=== PATIENT | male | born 1960 | race African-American/Black ===

== ENCOUNTER 2021-05-05 12:49 | Outpatient (REF) | payer MEDICAID, SELFPAY ==
--- NOTE | ~2021-05-05 | XR_ITS ---
EXAMINATION: XR KNEE, BILATERAL CLINICAL INFORMATION: Pain. COMPARISON: None TECHNIQUE: 2 views of each knee. FINDINGS: RIGHT: Bone alignment is normal. No fracture or dislocation is seen. There is arthritis at the medial femorotibial and patellofemoral joints with joint space narrowing and osteophyte formation. There is an osteophyte at the quadriceps tendon insertion to the patella. There is a small joint effusion. LEFT KNEE: There is orthopedic hardware seen in the proximal tibia. No acute fracture or dislocation is seen. There is arthritis at the femorotibial and patellofemoral joints with joint space narrowing and osteophyte formation. There is an osteophyte at the quadriceps tendon insertion to the patella. There is a small joint effusion. XR/XR knee RT 2V IMPRESSION: Orthopedic hardware in the left proximal tibia. Bilateral arthritis, left greater than right.
--- NOTE | ~2021-05-05 | XR_ITS ---
EXAMINATION: XR KNEE, BILATERAL CLINICAL INFORMATION: Pain. COMPARISON: None TECHNIQUE: 2 views of each knee. FINDINGS: RIGHT: Bone alignment is normal. No fracture or dislocation is seen. There is arthritis at the medial femorotibial and patellofemoral joints with joint space narrowing and osteophyte formation. There is an osteophyte at the quadriceps tendon insertion to the patella. There is a small joint effusion. LEFT KNEE: There is orthopedic hardware seen in the proximal tibia. No acute fracture or dislocation is seen. There is arthritis at the femorotibial and patellofemoral joints with joint space narrowing and osteophyte formation. There is an osteophyte at the quadriceps tendon insertion to the patella. There is a small joint effusion. XR/XR knee LT 2V IMPRESSION: Orthopedic hardware in the left proximal tibia. Bilateral arthritis, left greater than right.
== END 2021-05-05 12:50 | disposition home or self-care (01) ==
LOC: HO.XRAY 12:49
PROVIDERS: Absent Provider Internal Medicine; PCP Internal Medicine; Visit Provider Family Medicine
DX: M25.561 Pain in right knee (principal); M25.562 Pain in left knee
CPT/HCPCS: 73560

== ENCOUNTER 2021-08-16 13:44 | Outpatient (REF) | payer MEDICAID, SELFPAY ==
--- NOTE | ~2021-08-16 | XR_ITS ---
EXAMINATION: XR SHOULDER, BILATERAL CLINICAL INFORMATION: Bilateral shoulder pain without known injury. COMPARISON: None TECHNIQUE: 4 views of each shoulder. FINDINGS: RIGHT SHOULDER: There is mild spurring about the glenohumeral joint. Joint space appears maintained. There is spurring with subchondral cyst formation seen involving the site of insertion of the supraspinatus tendon. There appears be some cystic change within the right humeral head with some cortical thinning and possible nondisplaced fracture versus overlying spurring without humeral head collapse. No definite calcific tendinitis is appreciated. No dislocation or subluxation appreciated. There is degenerative change of the acromioclavicular joint with spurring and narrowing. LEFT SHOULDER: There is no evidence of acute fracture or dislocation of the left shoulder. Mild spurring about the glenohumeral joint is seen without joint space narrowing. There is some spurring at site of insertion of the supraspinatus tendon with some mild subchondral cyst formation. No suspicious lytic or sclerotic lesions identified. There is prominent spurring about the left acromion with maintenance of the AC joint. XR/XR shoulder RT min 2V IMPRESSION: Degenerative change of both shoulders bilaterally as described right greater than left. Right humeral head cystic change with question nondisplaced cortical fracture without humeral head collapse. This appearance may be related to overlying spurring rather than a true fracture.
--- NOTE | ~2021-08-16 | XR_ITS ---
EXAMINATION: XR SHOULDER, BILATERAL CLINICAL INFORMATION: Bilateral shoulder pain without known injury. COMPARISON: None TECHNIQUE: 4 views of each shoulder. FINDINGS: RIGHT SHOULDER: There is mild spurring about the glenohumeral joint. Joint space appears maintained. There is spurring with subchondral cyst formation seen involving the site of insertion of the supraspinatus tendon. There appears be some cystic change within the right humeral head with some cortical thinning and possible nondisplaced fracture versus overlying spurring without humeral head collapse. No definite calcific tendinitis is appreciated. No dislocation or subluxation appreciated. There is degenerative change of the acromioclavicular joint with spurring and narrowing. LEFT SHOULDER: There is no evidence of acute fracture or dislocation of the left shoulder. Mild spurring about the glenohumeral joint is seen without joint space narrowing. There is some spurring at site of insertion of the supraspinatus tendon with some mild subchondral cyst formation. No suspicious lytic or sclerotic lesions identified. There is prominent spurring about the left acromion with maintenance of the AC joint. XR/XR shoulder LT min 2V IMPRESSION: Degenerative change of both shoulders bilaterally as described right greater than left. Right humeral head cystic change with question nondisplaced cortical fracture without humeral head collapse. This appearance may be related to overlying spurring rather than a true fracture.
== END 2021-08-16 13:45 | disposition home or self-care (01) ==
LOC: HO.XRAY 13:44
PROVIDERS: Visit Provider Internal Medicine
DX: M25.511 Pain in right shoulder (principal); M25.512 Pain in left shoulder
CPT/HCPCS: 73030

== ENCOUNTER → 2021-10-12 10:59 | Outpatient (BNVA) | payer MEDICAID, SELFPAY | PROVIDERS: PCP Internal Medicine; Visit Provider Physician Assistant | DX: M19.011 Primary osteoarthritis, right shoulder (principal); M75.80 Other shoulder lesions, unspecified shoulder | CPT/HCPCS: 20610; 99202; J1040 ==

== ENCOUNTER 2021-10-24 08:58 | Outpatient (REF) | payer MEDICAID, SELFPAY ==
--- NOTE | ~2021-10-24 | MR_ITS ---
EXAMINATION: MR SHOULDER WITHOUT CONTRAST, RIGHT CLINICAL INFORMATION: Right shoulder pain and weakness. Decreased range of motion. COMPARISON: Right shoulder radiographs dated 08/16/2021. TECHNIQUE: MRI of the shoulder without contrast was performed on a high-field scanner. FINDINGS: ROTATOR CUFF: Complete, full-thickness supraspinatus tendon tear measuring approximately 2.9 x 3.1 cm (AP by ML). Articular surface tearing extending to the anterior aspect of the infraspinatus tendon with fluid proximally along the myotendinous junction. Subscapularis tendinosis with distal articular surface partial tearing measuring 1.6 cm in ML dimension. No muscle atrophy or fatty infiltration. BICEPS: Complete tear and retraction of the proximal long head biceps tendon. CORACOACROMIAL ARCH: The undersurface of the acromion is curved with prominent subacromial spurring. Severe acromioclavicular osteoarthritis. LABRUM/CAPSULE: No displaced labral tear. Intact inferior joint capsule. GLENOHUMERAL JOINT/MARROW: Degenerative cystic change within the lesser and greater tuberosity. Mild glenohumeral articular cartilage signal heterogeneity with tiny marginal osteophytes. Small joint effusion. MR/MR shoulder RT wo con IMPRESSION: 1. Complete, full-thickness supraspinatus tendon tear measuring 2.9 x 3.1 cm. Extension to the articular surface of the infraspinatus tendon with fluid proximally along the myotendinous junction. Subscapularis tendinosis with distal articular surface partial tearing. 2. Complete tear and retraction of the proximal long head biceps tendon. 3. Severe acromioclavicular osteoarthritis with prominent subacromial spurring. 4. Mild glenohumeral osteoarthritis and small joint effusion.
== END 2021-10-24 08:59 | disposition home or self-care (01) ==
LOC: HO.MRI 08:58
PROVIDERS: Visit Provider Physician Assistant
DX: M19.011 Primary osteoarthritis, right shoulder (principal); M75.81 Other shoulder lesions, right shoulder
CPT/HCPCS: 73221

== ENCOUNTER → 2021-11-03 09:45 | Outpatient (BNVA) | payer MEDICAID, SELFPAY | PROVIDERS: PCP Internal Medicine; Visit Provider Orthopaedic Surgery | DX: M75.101 Unspecified rotator cuff tear or rupture of right shoulder, not specified as traumatic (principal); M12.811 Other specific arthropathies, not elsewhere classified, right shoulder | CPT/HCPCS: 99212 ==

== ENCOUNTER → 2021-11-27 12:38 | Outpatient (REF) | payer MEDICAID, SELFPAY ==
--- NOTE | 2021-11-27 12:41 | ECG_ITS ---
Hook-up date: 2021-11-27 11:57:00 Duration: 24:51:00 Test Indications: dizziness and gliddiness Medications: 87992 QRS complexes 8 Ventricular ectopics which represent <1 % of total QRS comp. 31 Supraventricular ectopics which represent <1 % of total QRS comp. * Paced QRS complexs which represent % of total QRS comp. VENTRICULAR ECTOPY 8 Isolated 0 Bigeminal Cycles 0 Couplets 0 Runs 0 Beats in Runs * Beats LONGEST at * BPM at :: -- * Beats FASTEST at * BPM at :: -- SUPRAVENTRICULAR ECTOPY 31 Isolated 0 Couplets 0 Runs 0 Beats in Runs * Beats LONGEST at * BPM at :: -- * Beats FASTEST at * BPM at :: -- HEART RATES 38 MIN at 02:05:23 2021-11-28 59 AVG 124 MAX at 11:10:34 2021-11-28 LONGEST RR 1.6000 secs at 05:20:13 2021-11-28 S-T LEVELS Channel 1 - 128 mm at 11:57:00 2021-11-27 - 128 mm at 11:57:00 2021-11-27 Channel 2 - 128 mm at 11:57:00 2021-11-27 - 128 mm at 11:57:00 2021-11-27 Channel 3 - 128 mm at 03:11:61 -- - 128 mm at 03:11:61 Underlying rhythm is sinus; Average ventricular rate 59/min; range 38-124/min; Rare supraventricular and ventricular ectopy; No significant tachy or laura arrhythmias; No dairy events. Referred By: Jacek Bush Overread By: OLESYA DUMAS
== END ==
LOC: HO.CARD 12:38
PROVIDERS: Visit Provider Internal Medicine
DX: R42 Dizziness and giddiness (principal)
CPT/HCPCS: 93225; 93226

== ENCOUNTER → 2022-02-09 11:47 | Outpatient (BNVA) | payer MEDICAID, SELFPAY | PROVIDERS: PCP Internal Medicine; Visit Provider Orthopaedic Surgery | DX: M75.101 Unspecified rotator cuff tear or rupture of right shoulder, not specified as traumatic (principal); M12.811 Other specific arthropathies, not elsewhere classified, right shoulder | CPT/HCPCS: 20610; 99212; J1100 ==

== ENCOUNTER 2022-08-31 09:24 | Day surgery (SDC) | payer MEDICAID, SELFPAY ==
[2022-08-31] VITALS (7 sets, daily range): BP systolic 113–145; BP diastolic 72–92; PULSE 51–69; RESP 20; TEMP 36.4–36.8; O2SAT 100
[2022-08-31 10:28] LABS: Anion Gap 14 (12-20); Blood Urea Nitrogen 7 mg/dL (9-16); Carbon Dioxide 27 mmol/L (22-29); Chloride 103 mmol/L (96-108); Estimated Glomerular Filt Rate 57; Potassium 4.2 mmol/L (3.3-5.1); Sodium 140 mmol/L (135-145)
== END 2022-08-31 16:23 | disposition home or self-care (01) ==
PROVIDERS: Psychiatry & Neurology Neurology; Radiology Diagnostic Radiology; PCP Internal Medicine; Visit Provider Psychiatry & Neurology Neurology
PROC: 009U3ZZ Drainage of Spinal Canal, Percutaneous Approach (ICD-10-PCS; CPT 62270; principal; 2022-08-31 11:00)
DX: G37.9 Demyelinating disease of central nervous system, unspecified (principal); F41.8 Other specified anxiety disorders; M47.812 Spondylosis without myelopathy or radiculopathy, cervical region; M50.00 Cervical disc disorder with myelopathy, unspecified cervical region; R42 Dizziness and giddiness; M19.90 Unspecified osteoarthritis, unspecified site; Z79.899 Other long term (current) drug therapy
CPT/HCPCS: 36415; 62328; 80051; 82565; 82945; 84157; 84520; 85025; 85610; 85730; 87015; 87070; 87205; 89051

== ENCOUNTER 2022-09-24 10:51 | Outpatient (REF) | payer MEDICAID, SELFPAY | END 2022-09-24 10:52 | disposition home or self-care (01) | LOC: HO.MDS 10:51 | PROVIDERS: Visit Provider Psychiatry & Neurology Neurology | DX: G37.9 Demyelinating disease of central nervous system, unspecified (principal) | CPT/HCPCS: 96365; J2930 ==

== ENCOUNTER 2022-09-25 10:52 | Outpatient (REF) | payer MEDICAID, SELFPAY | END 2022-09-25 10:53 | disposition home or self-care (01) | LOC: HO.MDS 10:52 | PROVIDERS: Visit Provider Psychiatry & Neurology Neurology | DX: G37.9 Demyelinating disease of central nervous system, unspecified (principal) | CPT/HCPCS: 96365; J2930 ==

== ENCOUNTER 2022-09-26 10:53 | Outpatient (REF) | payer MEDICAID, SELFPAY | END 2022-09-26 10:54 | disposition home or self-care (01) | LOC: HO.MDS 10:53 | PROVIDERS: Visit Provider Psychiatry & Neurology Neurology | DX: G37.9 Demyelinating disease of central nervous system, unspecified (principal) | CPT/HCPCS: 96365; J2930 ==

== ENCOUNTER 2022-10-02 11:36 | Outpatient (REF) | payer MEDICAID, SELFPAY ==
[2022-10-02 12:53] LABS: Erythrocyte Sedimentation Rate 5 MM/HR (0-15)
[2022-10-02 13:07] LABS: Alanine Aminotransferase 28 U/L (0-40); Albumin Level 4.2 g/dL (3.5-5.0); Alkaline Phosphatase 77 U/L (39-117); Aspartate Amino Transferase 18 U/L (5-37); Bilirubin Direct 0.1 mg/dL (0.0-0.5); Bilirubin Total 0.4 mg/dL (0.0-1.0); Total Protein 7.3 g/dL (6.5-8.0)
[2022-10-04 07:08] LABS: Lyme Abs Screen <0.90 index
[2022-10-08 15:18] LABS: Anti Nuclear Antibody Screen NEGATIVE (NEGATIVE)
[2022-10-11 01:15] LABS: JCV Antibody POSITIVE; JCV Index Value 0.47
== END 2022-10-02 11:37 | disposition home or self-care (01) ==
LOC: HO.LAB 11:36
PROVIDERS: PCP Internal Medicine; Visit Provider Psychiatry & Neurology Neurology
DX: G35 Multiple sclerosis (principal)
CPT/HCPCS: 36415; 80076; 85652; 86038; 86617; 86618; 86711

== ENCOUNTER 2022-10-31 13:05 | Outpatient (REF) | payer MEDICAID, SELFPAY ==
[2022-11-01 08:43] LABS: HBS Num1 0.23 mIU/mL (0-7.99); HBc Num1 0.07 S/CO (0.00-0.79); HBsAGNum1 0.29 S/CO (0.00-0.99); Hepatitis B Core Antibody Nonreactive (Nonreactive); Hepatitis B Surface Antigen Negative (Negative); ~Hepatitis B Surface Antibody NONREACTIVE (Nonreactive)
[2022-11-02 22:24] LABS: TS Negative Control Passed; TS Panel A 2; TS Panel B 0; TS Positive Control Passed; TSpotTB Negative (Negative)
== END 2022-10-31 13:06 | disposition home or self-care (01) ==
LOC: HO.HMGCLDS 13:05
PROVIDERS: PCP Internal Medicine; Visit Provider Psychiatry & Neurology Neurology
DX: Z11.1 Encounter for screening for respiratory tuberculosis (principal); G35 Multiple sclerosis
CPT/HCPCS: 36415; 86481; 86704; 86706; 87340

== ENCOUNTER 2023-01-14 13:46 | Outpatient (REF) | payer MEDICAID, SELFPAY ==
[2023-01-14 15:37] LABS: Anion Gap 9 (12-20); Blood Urea Nitrogen 7 mg/dL (9-16); Calcium 9.9 mg/dL (8.4-10.2); Carbon Dioxide 29 mmol/L (22-29); Chloride 102 mmol/L (96-108); Estimated Glomerular Filt Rate > 60; Glucose Random 97 mg/dL (60-115); Magnesium 2.3 mg/dL (1.6-2.6); Potassium 3.9 mmol/L (3.3-5.1); Sodium 136 mmol/L (135-145)
[2023-01-14 16:04] LABS: Vitamin B12 776 pg/mL (200-900)
== END 2023-01-14 13:47 | disposition home or self-care (01) ==
LOC: HO.CHCLDS 13:46
PROVIDERS: Visit Provider Internal Medicine
DX: R20.2 Paresthesia of skin (principal); I10 Essential (primary) hypertension
CPT/HCPCS: 36415; 80048; 82607; 83735

== ENCOUNTER 2023-12-19 13:57 | Outpatient (REF) | payer MEDICAID, SELFPAY ==
[2023-12-19 18:19] LABS: Alanine Aminotransferase 47 U/L (0-40); Albumin Level 4.1 g/dL (3.5-5.0); Alkaline Phosphatase 71 U/L (39-117); Anion Gap 13 (12-20); Aspartate Amino Transferase 66 U/L (5-37); Bilirubin Total 0.4 mg/dL (0.0-1.0); Blood Urea Nitrogen 9 mg/dL (9-16); Calcium 9.7 mg/dL (8.4-10.2); Carbon Dioxide 26 mmol/L (22-29); Chloride 105 mmol/L (96-108); Cholesterol 211 mg/dL (<200); Estimated Glomerular Filt Rate > 60; Glucose Random 80 mg/dL (60-115); HDL Cholesterol 82 mg/dL (>40); LDL Cholesterol Calculated 120 mg/dL (<100); Potassium 4.1 mmol/L (3.3-5.1); Sodium 140 mmol/L (135-145); Total Protein 7.1 g/dL (6.5-8.0); Triglycerides 49 mg/dL (<150)
[2023-12-19 18:35] LABS: TSH reflex Free T4 0.76 uIU/mL (0.32-4.0)
== END 2023-12-19 13:58 | disposition home or self-care (01) ==
LOC: HO.CHCLDS 13:57
PROVIDERS: Visit Provider Internal Medicine
DX: I10 Essential (primary) hypertension (principal); G35 Multiple sclerosis
CPT/HCPCS: 36415; 80053; 80061; 84443

== ENCOUNTER 2024-02-11 16:23 | Outpatient (REF) | payer MEDICAID, SELFPAY ==
[2024-02-12 08:15] LABS: HBS Num1 1.22 mIU/mL (0-7.99); Hepatitis A Antibody IgM 0.13 Index (0-0.79); Hepatitis B Core Antibody Nonreactive (Nonreactive); Hepatitis B Surface Antigen Negative (Negative); ~HepC Num1 0.12 S/CO (0.00-0.79); ~Hepatitis A Antibody IgM Nonreactive (Nonreactive); ~Hepatitis B Surface Antibody NONREACTIVE (Nonreactive); ~Hepatitis C Antibody Nonreactive (Nonreactive)
== END 2024-02-11 16:24 | disposition home or self-care (01) ==
LOC: HO.CHCLDS 16:23
PROVIDERS: Visit Provider Internal Medicine
DX: R74.01 Elevation of levels of liver transaminase levels (principal)
CPT/HCPCS: 36415; 86704; 86706; 86709; 86803; 87340

== ENCOUNTER 2024-06-19 14:42 | Outpatient (REF) | payer MEDICAID, SELFPAY ==
--- OUTSIDE RECORDS SUMMARY | 2024-06-19 15:24 | XMS_ITS | Encounter Summary ---
Author Organization [employer] Address [address], [place] [address] Care Team Providers Care Line Assigner Name Role Phone Jacek Bush MD Primary Care Provider [phone] Reason for Visit * Reason Onset Date Comments Appointment Request 08/14/2022 Encounter Details Date Type Department Care Team ([facility] st Contact Info) Description 08/14/2022 Telephone [facility] & PEDS [address], [place] [id number] Jacek Bush MD [address] [place] [address] Appointment Request Social History Tobacco Use Types Packs/Day Years Used Date Smoking Tobacco: Some Days Cigarettes Passive Smoke Exposure: Never Smokeless Tobacco: Never Alcohol Use Standard Drinks/Week Comments Never 0 (1 standard drink = 0.6 oz pur e alcohol) Depression Answer Date Recorded Patient Health Questionnaire-9 Score 2 02/06/2022 Depression Answer Date Recorded Patient Health Questionnaire-2 Score 0 02/06/2022 Sex and Gender Information Value Date Recorded Sex Assigned at Male 12/25/2021 10:17 AM EDT Legal Sex Male 10:17 AM EDT Gender Identity Male 12/25/2021 10:17 AM EDT Sexual Orientation Straight 12/25/2021 10 :17 AM EDT documented as of this encounter Miscellaneous Notes * Telephone Encounter - Viky Mcadamsnez - 08/14/2022 8:55 AM EDT Tc from patient requesting to r/s procedure appt from 08/07/22. Details: shoulder injection documented in this encounter Plan of Treatment Upcoming Encounters Date Type Department Care Team ([facility] st Contact Info) Description 07/01/2024 10:30 AM EDT Office Visit [facility] MED [facility] PEDS [address] [place] [address] Jacek Bush MD [address] [place] [address] documented as of this encounter Visit Diagnoses Not on filedocumented in this encounter Additional Health Concerns Assessment Noted Time PHQ-9 Depression Total Score: 2 02/07/20 22 10:57 AM EST documented as of this encounter Care Teams Line Assigner Relationship Specialty Start Date End Date Jacek Bush MD [address] [place] [address] PCP - General Internal Medicine 09/27/11 Kajal Pelayo Postdoctoral Research AssociatePin Game Machine Inspector 08/15/23 documented as of this encounter
--- OUTSIDE RECORDS SUMMARY | 2024-06-19 15:24 | XMS_ITS | Encounter Summary ---
Author Organization [employer] Address [address] [place] [address] [address] [address] Care Team Providers Care It Systems Analyst Consultant Name Role Phone Jacek Bush MD Primary Care Provider Encounter Details Date Type Department Care Team (Latest Contact Info) Description 03/23/2019 Abstract [facility] CONVERSIONS Dental, Provider, DDS Social History Tobacco Use Types Packs/Day Years Used Date Smoking Tobacco: Never Assessed Sex and Gender Information Value Date Recorded Sex Assigned at Male 12/25/2021 10:17 AM EDT Legal Sex Male 10:17 AM EDT Gender Identity Male 12/25/2021 10:17 AM EDT Sexual Orientation Straight 12/25/2021 10 :17 AM EDT documented as of this encounter Plan of Treatment Upcoming Encounters Date Type Department Care Team (Late st Contact Info) Description 07/01/2024 10:30 AM EDT Office Visit [facility] MED & PEDS [address] [place] [address] Jacek Bush MD [address] [place] [address] documented as of this encounter Visit Diagnoses Not on filedocumented in this encounter Care Teams It Systems Analyst Consultant Relationship Specialty Start Date End Date Jacek Bush MD [address] [place] [address] PCP - General Internal Medicine 09/27/11 Kajal Pelayo Morning Show HostThird Rail Installer 08/15/23 documented as of this encounter
--- OUTSIDE RECORDS SUMMARY | 2024-06-19 15:24 | XMS_ITS | Encounter Summary ---
Author Organization [employer] Address [address] [place] [address] Care Team Providers Care Energy Rater Name Role Phone aJcek Bush MD Primary Care Provider [phone]- [phone] Reason for Visit * Reason Onset Date Comments Appointment Request 10/14/2023 Encounter Details Date Type Department Care Team ([facility] st Contact Info) Description 10/14/2023 Telephone [facility] [address] [place] [address] Jacek Bush MD [address] [place] [address] Appointment Request Social History Tobacco Use Types Packs/Day Years Used Date Smoking Tobacco: Some Days Cigarettes Passive Smoke Exposure: Never Smokeless Tobacco: Never Alcohol Use Standard Drinks/Week Comments Never 0 (1 standard drink = 0.6 oz pur e alcohol) Depression Answer Date Recorded Patient Health Questionnaire-9 Score 2 02/06/2022 Housing Stability Answer Date Recorded What is your housing situation today? I have housing today, but I am worried about losing housing in the future 03/13/[address] you li ve. Do you have problems with any of the following? None of the above 03/13/2023 Food Insecurity Answer Date Recorded Within the past 12 months, y ou worried that your food would run out before you got money to buy more: Never True 03/13/2023 Within the past 12 months,th e food you bought just didn't last and you didn't have enough money to get more: Never True Transportation Answer Date Recorded In the past 12 months, has l ack of transportation kept you from medical appts, meetings, work or from getting things needed for daily living? Yes, it has kept me from medical appointments or getting medications. 03/13/2023 Utilities Answer Date Recorded In the past 12 months, has t he electric, gas, oil or water company threatened to shut off services in your home? No 03/13/2023 Depression Answer Date Recorded Patient Health Questionnaire-2 Score 0 02/06/2022 Sex and Gender Information Value Date Recorded Sex Assigned at Male 12/25/2021 10:17 AM EDT Legal Sex Male 10:17 AM EDT Gender Identity Male 12/25/2021 10:17 AM EDT Sexual Orientation Straight 12/25/2021 10 :17 AM EDT documented as of this encounter Miscellaneous Notes * Telephone Encounter - Ritchie Quiroz - 10/22/2023 8:45 AM EDT Tc from patient requesting status in regards to the message below * Telephone Encounter - Mis Ward RN - 10/15/2023 10:04 AM EDT Please advise on if pt. Is a candidate for referral for joint injection clinic? L shoulder x-ray inchart from July, also last seen in July for L shoulder pain and referred to PT. Thank you! * Telephone Encounter - Reina Ozuna - 10/14/2023 10:35 AM EDT Tc from pt requesting appt in order to get a cortisone shot on the left shoulder. documented in this encounter Plan of Treatment Upcoming Encounters Date Type Department Care Team (Late st Contact Info) Description 07/01/2024 10:30 AM EDT Office Visit [facility] MED [facility] PEDS [address] [place] [address] Jacek Bush MD [address] [place] [address] documented as of this encounter Visit Diagnoses Not on filedocumented in this encounter Additional Health Concerns Assessment Noted Time PHQ-9 Depression Total Score: 2 02/07/20 22 10:57 AM EST documented as of this encounter Care Teams Energy Rater Relationship Specialty Start Date End Date Jacek Bush MD [address] [place] [address] PCP - General Internal Medicine 09/27/11 Kajal Pelayo Crane Crew SupervisorPhysician Coder 08/15/23 documented as of this encounter
--- OUTSIDE RECORDS SUMMARY | 2024-06-19 15:24 | XMS_ITS | Clinical Summary ---
Author Organization [email or web address] Address [address] [place] [address] 7 [place] [address] Care Team Providers Care Potable Water Treatment Operator Name Role Phone Jacek Bush MD Primary Care Provider Allergies Active Allergy Reactions Criticality Noted Date Comments Onion Anaphylaxis High 06/19/2024 Medications Blood Pressure Monitoring (Omron 3 Series BP Monitor) device Check blood pressure on arm as directed ONCE OR twice DAILY 1 each 3 Active Diclofenac Sodium 1 % gelIndications: Chronic left shoulder pain Apply 2 Application. topically in the morning and 2 Application. at noon. Apply (2G) by topical route 2 times a day every day to the affected area. 100 g 3 4 Active nystatin (Nystop) 835326 UNIT/GM powderIndicatio ns:Toe web intertrigo Apply topically 2 times daily. 15 g 4 12/19/19 25 Active LORazepam (Ativan) 0.5 MG tabletIndicatio ns:Anxiety TAKE ONE TABLET BY MOUTH EVERY DAY NEEDED FOR ANXIETY 30 tablet 5 Active EPINEPHrine (Epipen) 0.3 MG/0.3ML injection syringeIndicati ons:Food allergy Inject 0.3 mL (0.3 mg) as directed 1 (one) time for 1 dose. use as directed for allergic reaction and then call 911 0.3 mL 5 Active diphenhydrAMINE (BENADryl) 25 MG tabletIndicatio ns:Food allergy Take 1 tablet (25 mg) by mouth every 8 (eight) hours if needed for itching. 30 tablet 07/20/19 Active Hospital, Clinic, or Other Facility Administered Medication Ordered Dose Route Frequency Start Date End Date Status LORazepam (Ativan) injection 0.5 mgIndications:Anxiety 0.5 mg IV Daily PRN 02/06/2022 Active Active Problems Problem Noted Date Diagnosed Date Hypercholesterolemia 02/11/2024 Abnormal LFTs (liver function tests) 02/11/2024 Multiple sclerosis 11/21/2022 Hypertension 02/06/2022 Family history of tobacco use 01/13/2022 Anxiety 12/31/2016 Encounters Date Type Department Care Team Description 06/19/2024 1:40 PM EDT Office Visit [facility] MED & PEDS [address] [place] [address] Jacek Bush MD Food allergy (Primary Dx) 06/19/2024 Travel 06/18/2024 Telephone [facility] MED[facility] [address] [place], [place] [phone] Jacek Bush MD Nurse Triage 05/08/2024 Population Health Risk Score [facility] ([facility]) Department [address] [place] [phone] Provider, Population Health Generic 04/30/2024 4:00 PM EST Office Visit [facility] [address] [place] [address] Jacek Bush MD Weight loss (Primary Dx); Subacute cough; Primary hypertension 04/30/2024 Travel 04/24/2024 Refill [facility] [address] [place] [address] Tj Tran MD Anxiety from Last 3 Months Immunizations Name Administration Dates Next Due Pfizer Covid-19 Vaccine 12+ 11/24/2020 Social History Tobacco Use Types Packs/Day Years Used Date Smoking Tobacco: Some Days Cigarettes Passive Smoke Exposure: Never Smokeless Tobacco: Never Tobacco Cessation:Ready to Q uit: Not Asked; Counseling Given: Not Answered Alcohol Use Standard Drinks/Week Comments Never 0 (1 standard drink = 0.6 oz pur e alcohol) Depression Answer Date Recorded Patient Health Questionnaire-9 Score 0 04/30/2024 Patient Health Questionnaire-9 Score 0 04/30/2024 Last PHQ-9: Questionnaire Data Not on file 0 04/30/2024 Housing Stability Answer Date Recorded What is your housing situation today? I have gerri samuels 04/30/[address] you li ve. Do you have problems with any of the following? None of the above;I am not sure 04/30/2024 Food Insecurity Answer Date Recorded Within the past 12 months, y ou worried that your food would run out before you got money to buy more: Sometimes True 2024 Within the past 12 months,th e food you bought just didn't last and you didn't have enough money to get more: Sometimes True 04/30/2024 Transportation Answer Date Recorded In the past 12 months, has l ack of transportation kept you from medical appts, meetings, work or from getting things needed for daily living? No 04/30/2024 Utilities Answer Date Recorded In the past 12 months, has t he electric, gas, oil or water company threatened to shut off services in your home? No 04/30/2024 Depression Answer Date Recorded Patient Health Questionnaire-2 Score 0 04/30/2024 Internet Access Answer Date Recorded Internet Access Q1 No 04/30/2024 Internet Access Q2 I cannot afford it 04/30/2024 Sex and Gender Information Value Date Recorded Sex Assigned at Male 12/25/2021 10:17 AM EDT Legal Sex Male 10:17 AM EDT Gender Identity Male 12/25/2021 10:17 AM EDT Sexual Orientation Straight 12/25/2021 10 :17 AM EDT Last Filed Vital Signs Vital Sign Reading Time Taken Comments Blood Pressure 131/77 06/19/2024 1:25 PM EDT Pulse 73 06/19/2024 1:25 PM EDT Temperature 36.2 ??C (97.1 ??F) 06/19/2024 1:25 PM ED T Respiratory Rate 22 06/19/2024 1:25 PM EDT Oxygen Saturation 98% 06/19/2024 1:25 PM EDT Inhaled Oxygen Concentration - - Weight 72.7 kg (160 lb 4 oz) 06/19/2024 1:25 PM EDT Height 172.1 cm (5' 7.75 ) 06/19/2024 1:25 PM ED T Body Mass Index 24.55 06/19/2024 1:25 PM EDT Plan of Treatment Upcoming Encounters Date Type Department Care Team ([facility] st Contact Info) Description 07/01/2024 10:30 AM EDT Office Visit [facility] [address] [facility] [place] [address] Jacek Bush MD [address] [place] [address] Health Maintenance Due Date Last Done Comments CT Colonography 1961 Colonoscopy 1961 Colorectal Cancer Screening 1961 FIT DNA/Cologuard 1961 FIT 1961 FOBT 1961 Sigmoidoscopy 1961 Pneumococcal Vaccine: 50+ Years (1 of 2 - PCV) 1980 Influenza Vaccine (#1) 2024 Postp oned from 10/27/2023 (Patient Refused) DTaP/Tdap/Td Vaccines (1 - Tdap) 11/03/2024 Postponed from 03/10 (Patient Refused) Zoster Vaccines (1 of 2) 11/03/2024 Pos tponed from 2011 (Patient Refused) COVID-19 Vaccine (2 - 2023-2 5 season) 2024 11/24/2020 Postponed from 10/26 (Patient Refused) Alcohol/Substance Use Screening 04/30/2025 04/30/2024 Depression Screening 04/30/2025 04/30/2024, 04/30/2024 SDOH Screening 04/30/2025 04/30/2024 Tobacco Screening 06/19/2025 06/19/2024 Lipid Panel 12/18/2028 12/19/2023, 05/26/2021 RSV Patients and Patients Aged 60 years or older (1 - 1-dose 75+ series) 2036 HIV Screening Completed 12/15/2020 Hepatitis C Screening Completed 02/11/2024 , 12/15/2020 HIB Vaccines Aged Out No longer eligi ble based on patient's age to complete this topic HPV Vaccines Aged Out No longer eligi ble based on patient's age to complete this topic Hepatitis A Vaccines Aged Out No long er eligible based on patient's age to complete this topic Hepatitis B Vaccines Aged Out No long er eligible based on patient's age to complete this topic IPV Vaccines Aged Out No longer eligi ble based on patient's age to complete this topic Meningococcal Vaccine Aged Out No yolanda solitario eligible based on patient's age to complete this topic RSV under 20 months Aged Out No longe r eligible based on patient's age to complete this topic Rotavirus Vaccines Aged Out No longer eligible based on patient's age to complete this topic Procedures Procedure Name Priority Date/Time Associated Diagnosis Comments XR CHEST 2 VIEWS Routine 05/01/2024 Weight loss Subacute cough HEPATITIS PANEL, GENERAL Routine 02/11/2024 4:24 PM EST Transaminitis LIPID PANEL, STANDARD Routine 12/19/2023 2:01 PM EDT Primary hypertension HIV 1/2 ANTIGEN/ANTIBODY, FOURTH GENERATION W/RFL Routine 12/15/2020 2:47 PM EDT from Last 3 Months or Most Recently Relevant to Health Maintenance Results * XR Chest 2 Views (05/01/2024) Anatomical Region Laterality Modality Chest Radiographic Smiley ging us Jacek Bush MD IMG XR PROCEDURES Final Res ult * Hepatitis A,B,C Profile (02/11/2024 4:24 PM EST) Hepatitis A IgM Nonreactive Nonreactive [facility] Comment:IgM antibodies to HELLER V not detected; does not exclude earlyacute or recovered HAV infection. ~Hepatitis B Surface Antibody NONREACTIVE Nonreactive [facility] Comment:Nonreactive: < 8.00 mIU/mL Hepatitis B Core Antibody Nonreactive Nonreactive [facility] Hepatitis C Antibody Nonreactive Nonreactive [facility] Comment:Antibodies to HCV no t detected; does not exclude early acuteHCV infection. Hepatitis B Surface Ag Negative Negative [facility] Blood Venous blood specimen / Unknown 02/11/2024 4:24 PM EST 02/11/2024 5:44 PM EST us Jacek Bush MD LAB BLOOD ORDERABLES Final Result [facility] [address] [place] [address] [phone] * (ABNORMAL) Lipid Panel, Standard (12/19/2023 2:01 PM EDT) Triglycerides 49 <150 mg/dL [facility] Comment:Desirable Triglyceri de: less than 150 mg/dLBorderline High Triglyceride 150-199 mg/dLHigh Triglyceride: 200-499 mg/dLVery High Triglyceride: greater than or equal to 5OO mg/dL Cholesterol 211(H) <200 mg/dL [facility] Comment:Desirable Cholestero l: less than 200 mg/dLBorderline High Cholesterol: 200-239 mg/dLHigh Cholesterol: greater than 239 mg/dL LDL Cholesterol Calculated 120(H) <100 mg/dL [facility] Comment:Desirable LDL: less than 100 mg/dLNear Optimal/Above Optimal LDL: 110- 129 mg/dLBorderline High LDL: 130-159 mg/dLHigh LDL: 160-189 mg/dLVery High LDL: greater than or equal to 190 mg/dL HDL Cholesterol 82 >40 mg/dL [facility] Comment:Desirable HDL: great er than 40 mg/dL Note: This HDL assay may give artificially low results in patients with liver disease. Blood Venous blood specimen / Unknown 12/19/2023 2:01 PM EDT 12/19/2023 5:37 PM EDT us Jacek Bush MD LAB BLOOD ORDERABLES Final Result [facility] [address] [place] [address] [phone] * HIV 1/2 ANTIGEN/ANTIBODY,FOURTH GENERATION W/RFL (12/15/2020 2:47 PM EDT) HIV-1/2 ANTIGEN AND ANTIBODIES, 4TH GENERATION W/ REFLEX NON-REACT DASHAWN NON-REACT DASHAWN [facility] Comment: HIV-1 antigen and HIV-1/HIV-2 antibodies were not detected. There is no laboratory evidence of HIV infection. ?? PLEASE NOTE: This information has been disclosed to you from records whose confidentiality may be protected by state law. ??If your state requires such protection, then the state law prohibits you from making any further disclosure of the information without the specific written consent of the person to whom it pertains, or as otherwise permitted by law. A general authorization for the release of medical or other information is NOT sufficient for this purpose. ? For additional information please refer to http://education.[employer]/faq/UOJ634 (This link is being provided for informational/ educational purposes only.) ? The performance of this assay has not been clinically validated in patients less than 2 years old. ?? 12/15/2020 2:47 PM EDT Michael Hou LINE PATROLLER LAB BLOOD ORDERABLES Final Result Performing Organization Address City/State/[facility] Co de Phone Number [facility] [address]where [address] from Last 3 Months or Most Recently Relevant to Health Maintenance Insurance C3 Care Teams Potable Water Treatment Operator Relationship Specialty Start Date End Date Jacek Bush MD [address] [place] [address] PCP - General Internal Medicine 09/27/11 Kajal Pelayo Lace And Textiles RestorerManager Implementation 08/15/23
--- OUTSIDE RECORDS SUMMARY | 2024-06-19 15:24 | XMS_ITS | Encounter Summary ---
Author Organization [employer] Address [address] [place] [address] Care Team Providers Care Roll Plugger Name Role Phone Jacek Bush MD Primary Care Provider [phone] Encounter Details Date Type Department Care Team ([facility] st Contact Info) Description 08/02/2023 Orders Only [facility] & PEDS [address] [place], [place] [phone] ProviderTyler MD Social History Tobacco Use Types Packs/Day Years [...] Description 07/01/2024 10:30 AM EDT Office Visit [facility] PEDS [address] [place], [place] [phone] Jacek Bush MD [address] [place] [address] documented as of this encounter Procedures Procedure Name Priority Date/Time Associated Diagnosis Comments XR SHOULDER 2 OR MORE VIEWS LEFT Routine 08/01/2023 10:06 AM EDT XR SHOULDER 2 OR MORE VIEWS RIGHT Routine 08/01/2023 10:03 AM EDT documented in this encounter Results * XR SHOULDER 2 OR MORE VIEWS LEFT (08/01/2023 10:06 AM EDT) Anatomical Region Laterality Modality Radiographic Smiley ging Historical Provider MD OVALLE XR PROCEDURES Final R esult * XR SHOULDER 2 OR MORE VIEWS RIGHT (08/01/2023 10:03 AM EDT) Anatomical Region Laterality Modality Radiographic Smiley ging Historical Provider MD OVALLE XR PROCEDURES Final R esult documented in this encounter Visit Diagnoses Not on filedocumented in this encounter Additional Health Concerns Assessment Noted Time PHQ-9 Depression Total Score: 2 02/07/20 22 10:57 AM EST documented as of this encounter Care Teams Roll Plugger Relationship Specialty Start Date End Date Jacek Bush MD [address] [place] [address] PCP - General Internal Medicine 09/27/[address]ior Court Office Assistant 08/15/23 documented as of this encounter
--- OUTSIDE RECORDS SUMMARY | 2024-06-19 15:24 | XMS_ITS | Encounter Summary ---
Author Organization [employer] Address [address] [facility] 7 [place] [address] Care Team Providers Care Dirt Bike Mechanic Name Role Phone Jacek Bush MD Primary Care Provider [phone] Encounter Details Date Type Department Care Team ([facility] Contact Info) Description 09/10/2022 Telephone [facility] MED & PEDS [address] [place], [place] [phone] Jacek Bush MD [address] [place] [address] Social History Tobacco Use Types Packs/Day Years [...] Orientation Straight 12/25/2021 10 :17 AM EDT COVID-19 Exposure Response Date Recorded In the last 10 days, have yo u been in contact with someone who was confirmed or suspected to have Coronavirus/COVID-19? No / Unsure 09/04/2022 3:05 PM EDT documented as of this encounter Plan of Treatment Upcoming Encounters Date Type Department Care Team ([facility] Contact Info) Description 07/01/2024 10:30 AM EDT Office Visit [facility] MED & PEDS [address] [place] [address] Jacek Bush MD [address] [place] [address] documented as of this encounter Visit Diagnoses Not on filedocumented in this encounter Additional Health Concerns Assessment Noted Time PHQ-9 Depression Total Score: 2 02/07/20 10:57 AM EST documented as of this encounter Care Teams Dirt Bike Mechanic Relationship Specialty Start Date End Date Jacek Bush MD [address] [place] [address] PCP - General Internal Medicine 09/27/11 Kajal Pelayo Traveling Plant OperatorPayroll Bookkeeper 08/15/23 documented as of this encounter
--- OUTSIDE RECORDS SUMMARY | 2024-06-19 15:24 | XMS_ITS | Encounter Summary ---
Author Organization [employer] Address [address] [facility] [address]t [place] [address] Care Team Providers Care Family Literacy Coordinator Name Role Phone Jacek Bush MD Primary Care Provider [phone] Encounter Details Date Type Department Care Team (Latest Contact Info) Description 06/19/2024 Travel Social History Tobacco Use Types Packs/Day Years [...] Description 07/01/2024 10:30 AM EDT Office Visit [facility] MED & PEDS [address] [place] [address] Jacek Bush MD [address] [place] [address] documented as of this encounter Visit Diagnoses Not on filedocumented in this encounter Additional Health Concerns Assessment Noted Time PHQ-9 Depression Total Score: 0 05/01/19 25 4:17 PM EST documented as of this encounter Care Teams Family Literacy Coordinator Relationship Specialty Start Date End Date Jacek Bush MD [address] [place] [address] PCP - General Internal Medicine 09/27/11 Kajla Pelayo Hardscape ForemanCentrifugal Wax Molder 08/15/23 documented as of this encounter
--- OUTSIDE RECORDS SUMMARY | 2024-06-19 15:24 | XMS_ITS | Encounter Summary ---
Author Organization [employer] Address [address] [facility] 7 [place] [address] Care Team Providers Care Internal Audit Director Name Role Phone Jacek Bush MD Primary Care Provider [phone]- [phone] Reason for Visit * Reason Onset Date Comments Nurse Triage 06/18/2024 Encounter Details Date Type Department Care Team ([facility] st Contact Info) Description 06/18/2024 Telephone [facility] MEDICINE [address] [place] [address] Jacek Bush MD [address] [place] [address] Nurse Triage Social History Tobacco Use Types Packs/Day Years [...] encounter Miscellaneous Notes * Telephone Encounter - Frances Murillo RN - 06/18/2024 3:55 PM EDT Called pt. Back to schedule him in [facility] for tomorrow per permission from Truck Driver'S Offsider Leah Rodgers. Appt. Made for 140pm tomorrow 06/19/24. * Telephone Encounter - Frances Murillo RN - 06/18/2024 2:02 PM EDT Called pt. He states that he is having an allergic reaction to some food. Questioning onions even though he eats them all the time. Pt. States that he ate onions a few days ago and felt like he was getting SOB and felt like he could not breath and felt like his throat was closing up. Pt. Did nothing about it. Last night pt. Was cooking up onions and had some last night as well. Same thing happened and pt. [place] like he was having a hard time breathing. Then sx. Went away. Pt. Is not experiencingsx. At present. I advised for him to be seen rolando and of course to avoid onions right now until seen. Pt cannot go to [facility] walk in as he states I live in [place]. I advised pt. To go to ED but, he is declining ED. Pt. Wants to be seen tomorrow 06/19/24 in [facility]. I advised that pt call 911 if this happens again and I will call him as soon as the [facility] schedule opens for tomorrow so that he can discuss sx. Possible blood work and an Epi pen RX. Pt. Denies any other sx. No facial swelling. No itchy throat during episode. Will leave call in basket for when [facility] schedule opens up for tomorrow PM. Protocol Used: Anaphylaxis (Adult) Protocol-Based Disposition: See in Office or Video Visit Today- Pt. Declines. Video visit offer not recorded Positive Triage Question: * Patient wants to be seen * All higher-acuity triage questions were negative Care Advice Discussed: * First Aid Advice for Anaphylaxis - Epinephrine * First Aid Advice for Anaphylaxis - Benadryl * Telephone Encounter - Baldev Shields - 06/18/2024 1:14 PM EDT Symptoms: Allergic Reaction (General), Breathing Trouble Outcome: Transfer to a nurse or provider NOW! Reason: This is the only possible outcome for these symptoms The caller accepted this outcome. Contact pt at [phone] documented in this encounter Plan of Treatment Upcoming Encounters Date Type Department Care Team ([facility] st Contact Info) Description 07/01/2024 10:30 AM EDT Office Visit [facility] MED & PEDS [address] [place] [address] Jacek Bush MD [address] [place] [address] documented as of this encounter Visit Diagnoses Not on filedocumented in this encounter Additional Health Concerns Assessment Noted Time PHQ-9 Depression Total Score: 0 05/01/19 25 4:17 PM EST documented as of this encounter Care Teams Internal Audit Director Relationship Specialty Start Date End Date Jacek Bush MD [address] [place] [address] PCP - General Internal Medicine 09/27/11 Kajal Pelayo Roof Truss Machine TenderPatient Liaison 08/15/23 documented as of this encounter
--- OUTSIDE RECORDS SUMMARY | 2024-06-19 15:24 | XMS_ITS | Encounter Summary ---
Author Organization [employer] Address [address] [place] [address] Care Team Providers Care Housing Case Manager Name Role Phone Jacek Bush MD Primary Care Provider Reason for Referral * Consultation (Routine) - Pending Review Specialty Diagnoses / Procedures Referred By Maurizio valles Referred To Contact Allergy Diagnoses Food allergy Jacek Bush MD [address] [place] [address] Phone: tel: fax: Referral ID Status Reason Start Date Expiration Date Visits Requested Visits Authorized [id number] Pending Review Specialty Services Required 06/19/2024 06/19/2025 1 1 Reason for Visit * Reason Comments Suspicion of food allergy Encounter Details Date Type Department Care Team ([facility] Contact Info) Description 06/19/2024 1:40 PM EDT Office Visit [facility] [address] [place] [address] Jacek Bush MD [address] [place] [address] Food allergy (Primary Dx) Social History Tobacco Use Types Packs/Day Years [...] AM EDT documented as of this encounter Last Filed Vital Signs Vital Sign Reading [...] Mass Index 24.55 06/19/2024 1:25 PM EDT documented in this encounter Progress Notes * Jacek Bush MD - 06/19/2024 1:40 PM EDT SUBJECTIVE Won Henning is a 64 y.o. male who presents for Suspicion of food allergy. HPI Patient reports a sensation of throat closing and difficulty breathing that lasted about 4 to 5 minutes on 2 occasions after having onions. Otherwise he has been having only once or his life but about 3 weeks ago after eating an onion sandwich he felt that sensation of his throat closing with difficulty breathing. 3 days ago he made soft kale mixed with only once and just is the only 1 and felt the same sensation. No subsequent episode since then. Patient Active Problem List Diagnosis Anxiety Family history of tobacco use Hypertension Multiple sclerosis (CMS/HCC) Hypercholesterolemia Abnormal LFTs (liver function tests) Allergies Allergen Reactions Onion Anaphylaxis Current Outpatient Medications on File Prior to Visit Medication Sig Dispense Refill Blood Pressure Monitoring (Omron 3 Series BP Monitor) device Check blood pressure on arm as directed ONCE OR twice DAILY 1 each 0 Diclofenac Sodium 1 % gel Apply 2 Application. topically in the morning and 2 Application. at noon.Apply (2G) by topical route 2 times a day every day to the affected area. 100 g 3 LORazepam (Ativan) 0.5 MG tablet TAKE ONE TABLET BY MOUTH EVERY DAY NEEDED FOR ANXIETY 30 tablet0 nystatin (Nystop) 768527 UNIT/GM powder Apply topically 2 times daily. 15 g 0 Current Facility-Administered Medications on File Prior to Visit Medication Dose Route Frequency Provider Last Rate Last Admin LORazepam (Ativan) injection 0.5 mg 0.5 mg Intravenous Daily PRN Jacek Bush MD Review of Systems Constitutional: Negative for appetite change, chills and diaphoresis. Respiratory: Negative for cough, choking and shortness of breath. Cardiovascular: Negative for leg swelling. Gastrointestinal: Negative for anal bleeding and blood in stool. OBJECTIVE Vitals: 06/19/24 1325 BP: 131/77 BP Location: Left arm Patient Position: Sitting BP Cuff Size: Adult Pulse: 73 Resp: 22 Temp: 97.1 ??F (36.2 ??C) TempSrc: Oral SpO2: 98% Weight: 160 lb 4 oz (72.7 kg) Height: 5' 7.75 (1.721 m) Physical Exam Constitutional: General: He is not in acute distress. Appearance: Normal appearance. He is not ill-appearing, toxic-appearing or diaphoretic. Cardiovascular: Rate and Rhythm: Normal rate. Pulmonary: Effort: Pulmonary effort is normal. No respiratory distress. Breath sounds: No stridor. No wheezing or rhonchi. Neurological: Mental Status: He is alert. Assessment/Plan Assessment/Plan Diagnoses and all orders for this visit: Food allergy - Food Allergy Profile; Future - Referral to Allergy; Future - EPINEPHrine (Epipen) 0.3 MG/0.3ML injection syringe; Inject 0.3 mL (0.3 mg) as directed 1 (one) time for 1 dose. use as directed for allergic reaction and then call 911 - diphenhydrAMINE (BENADryl) 25 MG tablet; Take 1 tablet (25 mg) by mouth every 8 (eight) hours if needed for itching. documented in this encounter Plan of Treatment Upcoming Encounters Date Type Department Care Team (Late st Contact Info) Description 07/01/2024 10:30 AM EDT Office Visit [facility] [address] [place] [address] Jacek Bush MD [address] [place] [address] Scheduled Orders Name Type Priority Associated Diagnoses Orde r Schedule Food Allergy Profile Lab Routine Food allergy Expected: 06/19/2024 (Approximate), Expires: 06/19/2025 Scheduled Referrals Name Type Priority Associated Diagnoses Orde r Schedule Referral to Allergy Outpatient Referral Routine Food allergy Expected: 06/19/2024 (Approximate), Expires: 06/19/2025 documented as of this encounter Visit Diagnoses Diagnosis Food allergy- Primary Dermatitis due to food taken internally documented in this encounter Additional Health Concerns Assessment Noted Time PHQ-9 Depression Total Score: 0 05/01/19 25 4:17 PM EST documented as of this encounter Care Teams Housing Case Manager Relationship Specialty Start Date End Date Jacek Bush MD [address] [place] [address] PCP - General Internal Medicine 09/27/11 Kajal Pelayo Embedded Linux EngineerPegger Dobby Looms 08/15/23 documented as of this encounter
--- OUTSIDE RECORDS SUMMARY | 2024-06-19 15:24 | XMS_ITS | Encounter Summary ---
Author Organization [employer] Address [address] [facility] [address] [place] [address] Care Team Providers Care Didactic Instructor Name Role Phone Jacek Bush MD Primary Care Provider [phone]- [phone] Reason for Referral * Imaging (Routine) - Closed Specialty Diagnoses / Procedures Referred By Maurizio valles Referred To Contact Radiology Diagnoses Transaminitis Procedures US Abdomen Complete Jacek Bush MD [address] [place] [address] Phone: tel: fax: [facility] [address] [place], [place] Phone: tel: fax: Referral ID Status Reason Start Date Expiration Date Visits Re quested Visits Authorized [id number] Closed 12/23/2023 12/22/2024 1 1 Encounter Details Date Type Department Care Team (Late st Contact Info) Description 12/20/2023 Orders Only [facility] [address] [place] [address] Jacek Bush MD [address] [place] [address] Transaminitis (Primary Dx) Social History Tobacco Use Types [...] Description 07/01/2024 10:30 AM EDT Office Visit [facility] [address] [place] [address] Jacek Bush MD [address] [place] [address] documented as of this encounter Procedures Procedure Name Priority Date/Time Associated Diagnosis Comments US ABDOMEN COMPLETE Routine 03/09/2024 Transaminitis HEPATITIS PANEL, GENERAL Routine 02/11/2024 4:24 PM EST Transaminitis documented in this encounter Results * US Abdomen Complete (03/09/2024) Anatomical Region Laterality Modality Abdomen Ultrasound us Jacek Bush MD IMG US PROCEDURES Final Res ult * Hepatitis A,B,C Profile (02/11/2024 4:24 PM EST) Hepatitis A IgM Nonreactive Nonreactive [facility] Comment:IgM antibodies to HELLER V not detected; does not exclude earlyacute or recovered HAV infection. ~Hepatitis B Surface Antibody NONREACTIVE Nonreactive [facility] Comment:Nonreactive: < 8.00 mIU/mL Hepatitis B Core Antibody Nonreactive Nonreactive [facility] Hepatitis C Antibody Nonreactive Nonreactive [facility] Comment:Antibodies to HCV no t detected; does not exclude early acuteHCV infection. Hepatitis B Surface Ag Negative Negative [facility] Blood Venous blood specimen / Unknown 02/11/2024 4:24 PM EST 02/11/2024 5:44 PM EST us Jacek Bush MD LAB BLOOD ORDERABLES Final Result [facility] [address] [place] [phone] [phone] documented in this encounter Visit Diagnoses Diagnosis Transaminitis- Primary Nonspecific elevation of levels of transaminase or lactic acid dehydrogenase (LDH) documented in this encounter Additional Health Concerns Assessment Noted Time PHQ-9 Depression Total Score: 2 02/07/20 22 10:57 AM EST documented as of this encounter Care Teams Didactic Instructor Relationship Specialty Start Date End Date Jacek Bush MD [address] [place] [phone] PCP - General Internal Medicine 09/27/11 Kajal Pelayo Software AnalystCrematory Operator 08/15/23 documented as of this encounter
--- OUTSIDE RECORDS SUMMARY | 2024-06-19 15:25 | XMS_ITS | Encounter Summary ---
Author Organization [employer] Address [address] [place] [address] [address] [place] [address] Care Team Providers Care Trolley Operator Name Role Phone Jacek Bush MD Primary Care Provider Encounter Details Date Type Department Care Team ([facility] Contact Info) Description 01/02/2023 Orders Only [facility] MED [facility] PED[facility] [address] [place] [address] Jacek Bush MD [address] [place] [address] Primary osteoarthritis of other site (Primary Dx); Chronic pain of both shoulders Social History Tobacco Use Types Packs/Day Years [...] Encounters Date Type Department Care Team (Late Contact Info) Description 07/01/2024 10:30 AM EDT Office Visit [facility] [address] [place] [address] Jacek Bush MD [address] [place] [address] Scheduled Orders Name Type Priority Associated Diagnoses Orde r Schedule XR Shoulder 2+ Views Right Imaging Routine Primary osteoarthritis of other site Chronic pain of both shoulders Expected: 01/02/2023, Expires: 01/03/2024 XR Shoulder 2+ Views Left Imaging Routine Primary osteoarthritis of other site Chronic pain of both shoulders Expected: 01/02/2023, Expires: 01/03/2024 documented as of this encounter Visit Diagnoses Diagnosis Primary osteoarthritis of other site- Primary Chronic pain of both shoulders documented in this encounter Additional Health Concerns Assessment Noted Time PHQ-9 Depression Total Score: 2 02/07/20 22 10:57 AM EST documented as of this encounter Care Teams Trolley Operator Relationship Specialty Start Date End Date Jacek Bush MD [address] [place] [address] PCP - General Internal Medicine 09/27/11 Kajal Pelayo Auto WreckerEnterprise Resource Analyst 08/15/23 documented as of this encounter
--- OUTSIDE RECORDS SUMMARY | 2024-06-19 15:25 | XMS_ITS | Encounter Summary ---
Author Organization [employer] Address [address] [facility] [address] [address] Care Team Providers Care Transporter Driver Name Role Phone Jacek Bush MD Primary Care Provider [phone]- [phone] Reason for Visit * Reason Onset Date Comments requesting a call 07/31/2022 Encounter Details Date Type Department Care Team (Late st Contact Info) Description 07/31/2022 Telephone [facility] [address] [place] [address] Jacek Bush MD [address] [place] [address] requesting a call Social History Tobacco Use Types Packs/Day Years [...] encounter Miscellaneous Notes * Telephone Encounter - Day Jalloh - 07/31/2022 1:23 PM EDT Tc from pt requesting a call back in regards to 08/07/22 appointment for shoulder injection. Pt states he has a couple questions as well as wanting the injection on the knee instead of shoulder. Please contact pt at [phone] documented in this encounter Plan of Treatment Upcoming Encounters Date Type Department Care Team ([facility] st Contact Info) Description 07/01/2024 10:30 AM EDT Office Visit [facility] [address] [place] [address] Jacek Bush MD [address] [place] [address] documented as of this encounter Visit Diagnoses Not on filedocumented in this encounter Additional Health Concerns Assessment Noted Time PHQ-9 Depression Total Score: 2 02/07/20 22 10:57 AM EST documented as of this encounter Care Teams Transporter Driver Relationship Specialty Start Date End Date Jacek Bush MD [address] [place] [address] PCP - General Internal Medicine 09/27/11 Kajal Pelayo Paid Search AnalystCompliance Spec 08/15/23 documented as of this encounter
--- OUTSIDE RECORDS SUMMARY | 2024-06-19 15:25 | XMS_ITS | Encounter Summary ---
Author Organization [employer] Address [address] [place] [address] [address] [address] Care Team Providers Care Dinkey Press Operator Name Role Phone Jacek Bush MD Primary Care Provider [phone]- [phone] Encounter Details Date Type Department Care Team ([facility] Contact Info) Description 02/28/2023 Orders Only [facility] [address] [place] [address] Jacek Bush MD [address] [place] [address] Multiple sclerosis (CMS/HCC) (Primary Dx) Social History Tobacco Use Types [...] Upcoming Encounters Date Type Department Care Team ([facility] Contact Info) Description 07/01/2024 10:30 AM EDT Office Visit [facility] [address] [place] [address] Jacek Bush MD [address] [place] [address] documented as of this encounter Visit Diagnoses Diagnosis Multiple sclerosis (CMS/HCC)- Primary Multiple sclerosis documented in this encounter Additional Health Concerns Assessment Noted Time PHQ-9 Depression Total Score: 2 02/07/20 22 10:57 AM EST documented as of this encounter Care Teams Dinkey Press Operator Relationship Specialty Start Date End Date Jacek Bush MD [address] [place] [address] PCP - General Internal Medicine 09/27/11 Kajal Pelayo Hairspring AssemblerCriminal Defense Lawyer 08/15/23 documented as of this encounter
--- OUTSIDE RECORDS SUMMARY | 2024-06-19 15:25 | XMS_ITS | Encounter Summary ---
Author Organization [employer] Address [address] [facility] 7 [place] [address] Care Team Providers Care Field Support Specialist Name Role Phone Jacek Bush MD Primary Care Provider [phone]- [phone] Reason for Referral * Imaging (Routine) - Closed Specialty Diagnoses / Procedures Referred By Maurizio valles Referred To Contact Diagnoses Lightheadedness Procedures MR Cervical Spine w/ and w/o Contrast Jacek Bush MD [address] [place] [phone] Phone: tel: fax: [facility] [address] [place], [place] Phone: tel: fax: Referral ID Status Reason Start Date Expiration Date Visits Re quested Visits Authorized [id number] Closed 07/25/2022 07/25/2023 1 1 Encounter Details Date Type Department Care Team (Late st Contact Info) Description 07/25/2022 Orders Only [facility] P[facility]S [address] [place] [address] Jacek Bush MD [address] [place] [address] Lightheadedness (Primary Dx) Social History Tobacco Use Types [...] Description 07/01/2024 10:30 AM EDT Office Visit [facility]S [address] [place] [address] Jacek Bush MD [address] [place] [address] Scheduled Orders Name Type Priority Associated Diagnoses Orde r Schedule MR Cervical Spine w/ and w/o Contrast Imaging Routine Lightheadedness Expected: 07/25/2022, Expires: 07/26/2023 documented as of this encounter Procedures Procedure Name Priority Date/Time Associated Diagnosis Comments HEPATITIS B PROFILE Routine 10/31/2022 1 :20 PM EDT Lightheadedness T-SPOT(R).TB Routine 10/31/2022 1:20 PM EDT Lightheadedness CREATININE, SERUM Routine 08/31/2022 9:3 6 AM EDT Lightheadedness CBC WITH AUTO DIFFERENTIAL Routine 08/31/2022 9:36 AM EDT Lightheadedness APTT Routine 08/31/2022 9:36 AM EDT Lightheadedness PROTHROMBIN TIME-INR Routine 08/31/2022 9:36 AM EDT Lightheadedness UREA NITROGEN (BUN) Routine 08/31/2022 9 :36 AM EDT Lightheadedness ELECTROLYTE PANEL Routine 08/31/2022 9:3 6 AM EDT Lightheadedness TOTAL PROTEIN CSF Routine 08/31/2022 12: 00 AM EDT Lightheadedness OLIGOCLONAL BANDING Routine 08/31/2022 1 2:00 AM EDT Lightheadedness IGG SYNTHESIS RATE/INDEX, CSF Routine 08/31/2022 12:00 AM EDT Lightheadedness GRAM STAIN Routine 08/31/2022 12:00 AM EDT Lightheadedness CSF CELL COUNT WITH DIFFERENTIAL Routine 08/31/2022 12:00 AM EDT Lightheadedness GLUCOSE, CSF Routine 08/31/2022 12:00 AM EDT Lightheadedness documented in this encounter Results * T-SPOT??.TB (10/31/2022 1:20 PM EDT) T Spot TB Negative Negative [facility] Comment:A negative test resu lt does not exclude the possibilityof exposure to or infection with Mycobacteriumtuberculosis (M. tuberculosis). Patients with recentexposure to TB infected individuals exhibiting anegative T-SPOT.TB result should be considered forretesting within 6 weeks or if other relevant clinicalsymptoms indicate. Results from T-SPOT.TB testing mustbe used in conjunction with each individual'sepidemiological history, current medical status,and results of other diagnostic evaluations.The T-SPOT.TB test is qualitative and results arereported as positive, borderline, or negative, giventhat the test controls perform as expected. In linewith the Centers for Disease Control and Prevention's2010 recommendation to report quantitative measurementsalongside the qualitative result, the laboratoryprovides spot counts for informational purposes only.The T-SPOT.TB test should not be interpreted as aquantitative test. TS PANEL A 2 [facility] TS PANEL B 0 [facility] Negative Control Passed [facility] Positive Control Passed [facility] Comment:For additional infor anay, please refer tohttp://education.[employer]/faq/EMS352(This link is being provided for informational/educational purposes only.)THIS TEST WAS PERFORMED AT:[facility] [place] [address]LBWCRJWALLISON HERNANDEZ MD,PHD 10/31/2022 1:20 PM EDT 10/31/2022 3:54 PM EDT [facility] External Provider LAB BLO OD ORDERABLES Final Result Performing Organization Address [facility] Co de Phone Number [facility] [address] [place] [phone] * Hepatitis B Profile (10/31/2022 1:20 PM EDT) Pathologist [facility] ~Hepatitis B Surface Antibody NONREACTIVE Nonreactive [facility] Comment:Nonreactive: < 8.00 mIU/mL Hepatitis B Core Antibody Nonreactive Nonreactive [facility] Hepatitis B Surface Ag Negative Negative [facility] 10/31/2022 1:20 PM EDT 10/31/2022 3:54 PM EDT [facility] External Provider LAB BLO OD ORDERABLES Final Result Performing Organization Address [facility] Co de Phone Number [facility] [address] [place] [phone] * Creatinine, Serum (08/31/2022 9:36 AM EDT) Pathologist [facility] Creatinine, Serum 1.28 0.5 - 1.4 mg/dL [facility] Creatinine Clr Calc Pharmacy TNP [facility] Comment:Unable to calculate eCrCL; all parameters not provided. Estimated Glomerular Filt Rate 57 [facility] Comment:NOTE: For -Am erican individuals, multiply the result by 1.210.Chronic Kidney Disease: Estimated GFR < 60 mL/min/1.56u7Klqezt Kidney Disease: Estimated GFR < 15 mL/min/1.73m2 08/31/2022 9:36 AM EDT 08/31/2022 9:38 AM EDT [facility] External Provider LAB BLO OD ORDERABLES Final Result Performing Organization Address [facility] Co de Phone Number [facility] [address] [place] [phone] * (ABNORMAL) BUN (Blood Urea Nitrogen) (08/31/2022 9:36 AM EDT) Urea Nitrogen (BUN) 7(L) 9 - 16 mg/dL [facility] 08/31/2022 9:36 AM EDT 08/31/2022 9:38 AM EDT [facility] External Provider LAB BLO OD ORDERABLES Final Result Performing Organization Address [facility] de Phone Number [facility] [address] [place] [phone] * Electrolyte Panel (08/31/2022 9:36 AM EDT) Sodium 140 135 - 145 mmol/L [facility] Potassium 4.2 3.3 - 5.1 mmol/L [facility] Chloride 103 96 - 108 mmol/L [facility] Carbon Dioxide 27 22 - 29 mmol/L [facility] Anion Gap 14 12 - 20 [facility] 08/31/2022 9:36 AM EDT 08/31/2022 9:38 AM EDT [facility] External Provider LAB BLO OD ORDERABLES Final Result Performing Organization Address [facility] Co de Phone Number [facility] [address] [place] [phone] * Partial Thromboplastin Time, Activated (APTT) (08/31/2022 9:36 AM EDT) Partial Thromboplastin Time 35.2 26.0 - 36.4 SEC [facility] 08/31/2022 9:36 AM EDT 08/31/2022 9:38 AM EDT [facility] External Provider LAB BLO OD ORDERABLES Final Result [facility] [address] [place] [phone] * Prothrombin Time-INR (08/31/2022 9:36 AM EDT) Prothrombin Time 11.6 10.0 - 13.1 SEC [facility] INTERNATIONAL NORM RATIO 1.0 0.9 - 1.1 [facility] Comment:INTERNATIONAL NORMAL IZED RATIO (INR) REFERENCE RANGES Reference RangeFor patients not on anticoagulant therapy: 0.9 - 1.1INR ranges for oral anticoagulanttherapy:For prevention and treatment of venous thrombosis and pulmonary embolism: 2.0 - 3.0For acute myocardial infarction with aspirin therapy: 2.0 - 3.0For acute myocardial infarction without aspirin therapy: 3.0 - 4.0For patients with mechanical prosthetic heart valves: 2.5 - 3.5 08/31/2022 9:36 AM EDT 08/31/2022 9:38 AM EDT [facility] External Provider LAB BLO OD ORDERABLES Final Result Performing Organization Address [facility]/ZIP Co de Phone Number [facility] [address] [place] [phone] * (ABNORMAL) CBC auto differential (08/31/2022 9:36 AM EDT) White Blood Count 5.4 4.8 - 10.8 X10*3/uL [facility] Red Blood Count 5.09 4.60 - 5.80 X10*6/uL [facility] Hemoglobin 14.7 14.0 - 18.0 g/dl [facility] Hematocrit 43.8 42.0 - 52.0 % [facility] Mean Corpuscular Volume 86.1 80.0 - 98.0 fL [facility] Mean Corpuscular Hemoglobin 28.9 27.0 - 33.0 pg [facility] Mean Corpuscular HGB Conc 33.6 31.0 - 36.0 g/dl [facility] Red Cell Distribution Width 12.8 11.0 - 16.0 % [facility] Platelet Count 182 160 - 400 X10*3/uL [facility] Mean Platelet Volume 10.7 9.4 - 12.4 fL [facility] Neutrophils Percent Auto 35.8(L) 45 - 73 % [facility] Imm Gran Pct Auto 0.0 0.0 - 0.4 % [facility] Lymphocytes Percent Auto 52.4(H) 20 - 40 % [facility] Monocytes Percent Auto 7.2 2 - 11 % [facility] Eosinophils Percent Auto 3.9 0 - 4 % [facility] Basophils Percent Auto 0.7 0 - 2 % [facility] NRBC Pct Auto 0.0 0.0 - 0.2 /100WBC [facility] Neutrophils Absolute Auto 1.9(L) 2.0 - 8.3 x10*3/uL [facility] Imm Gran Abs Auto 0.00 0.00 - 0.03 X10*3/uL [facility] Lymphocytes Absolute Auto 2.8 1.2 - 4.9 X10*3/uL [facility] Monocytes Absolute Auto 0.4 0.1 - 1.2 X10*3/uL [facility] Eosinophils Absolute Auto 0.2 0.0 - 0.4 X10*3/uL [facility] Basophils Absolute Auto 0.0 0.0 - 0.2 X10*3/uL [facility] NRBC Abs Auto 0.000 0.0 - 0.012 X10*3/uL [facility] 08/31/2022 9:36 AM EDT 08/31/2022 9:38 AM EDT [facility] External Provider LAB BLO OD ORDERABLES Final Result Performing Organization Address [facility] Co de Phone Number [facility] [address] [place] [phone] * Oligoclonal banding (08/31/2022 12:00 AM EDT) Oligoclonal Bands (IgG), CSF [facility] 08/31/2022 08/31/2022 1:3 9 PM EDT [facility] External Provider LAB BLO OD ORDERABLES Final Result Performing Organization Address [facility] Co de Phone Number [facility] [address] [place] [phone] * IgG Synthesis Rate/Index, CSF (08/31/2022 12:00 AM EDT) Albumin [facility] Comment:QNS. TWO TUBES RECEI VANESSA WITH TOTAL OF 1.5cc LEAT Immunoglobulin G [facility] IgG, CSF [facility] Albumin, CSF [facility] IgG Index, CSF [facility] Synthesis Rate IgG, CSF [facility] 08/31/2022 08/31/2022 1:3 9 PM EDT [facility] Exter nal Provider LAB BODY FLUIDS AND STOOLS ORDERABLES Final Result Performing Organization Address [facility] Co de Phone Number [facility] [address] [place] [phone] * Gram stain (08/31/2022 12:00 AM EDT) 08/31/2022 08/31/2022 1:3 9 PM EDT Comment:CSF Narrative [facility] - 09/03/2022 9:13 AM EDT TUBE #2 Gram stain results: No polys 4+ red blood cells No organisms seen TUBE #2 CSF Volume CSF volume mL CSF Volume 1.0 TUBE #2 Appearance Appearance Appearance Bloody TUBE #2 CSF Culture No growth after 3 days. Specimen Source: Cerebrospinal Fluid [facility] Exter nal Provider LAB MICROBIOLOGY - GENERAL ORDERABLES Final Result Performing Organization Address [facility] de Phone Number [facility] [address] [place] [phone] * CSF cell count with differential (08/31/2022 12:00 AM EDT) Appearance CSF BLOODY [facility] CSF Tube Number 1 [facility] CSF Volume 0.5 ML [facility] CSF Color RED [facility] CSF White Blood Cell 6 MM*3 [facility] Comment:Body Fluid WBC is a total nucleated cell count.When a differential is performed, the specimen isconcentrated by cytocentrifugation. This sometimes resultsin the number of cells in the differential being greaterthan the actual cell count performed on thenon-concentrated specimen. CSF Red Blood Cell 76,750 MM*3 [facility] NEUTROPHILS %, CSF 45 % [facility] LYMPHOCYTES %, CSF 50 % [facility] Monocytes CSF 5 % [facility] 08/31/2022 08/31/2022 1:3 9 PM EDT [facility] Exter nal Provider LAB BODY FLUIDS AND STOOLS ORDERABLES Final Result Performing Organization Address [facility] de Phone Number [facility] [address] [place] [phone] * (ABNORMAL) Total Protein CSF (08/31/2022 12:00 AM EDT) Total Protein CSF 179.9(H) 15 - 45 mg/dL [facility] 08/31/2022 08/31/2022 1:3 9 PM EDT [facility] Exter nal Provider LAB BODY FLUIDS AND STOOLS ORDERABLES Final Result Performing Organization Address [facility] Co de Phone Number [facility] [address] [place] [phone] * Glucose, CSF (08/31/2022 12:00 AM EDT) CSF Appearance Bloody [facility] CSF Tube Number 2 [facility] Glucose CSF 66 mg/dL [facility] 08/31/2022 08/31/2022 1:3 9 PM EDT [facility] Exter nal Provider LAB BODY FLUIDS AND STOOLS ORDERABLES Final Result Performing Organization Address [facility] de Phone Number [facility] [address] [place] [phone] documented in this encounter Visit Diagnoses Diagnosis Lightheadedness- Primary Dizziness and giddiness documented in this encounter Additional Health Concerns Assessment Noted Time PHQ-9 Depression Total Score: 2 02/07/20 22 10:57 AM EST documented as of this encounter Care Teams Field Support Specialist Relationship Specialty Start Date End Date Jacek Bush MD [address] [place] [phone] PCP - General Internal Medicine 09/27/11 Kajal Pelayo Vacuum Pan OperatorForensics Team Director 08/15/23 documented as of this encounter
[2024-06-19 18:09] LABS: PSA,Total (Free>4and<10) 0.64 ng/mL (0.00-4.00)
[2024-06-25 02:48] LABS: Class Almond 0; Class Brazil Nut 0; Class Cashew 0; Class Codfish 0; Class Cow's Milk 0; Class Egg white 0; Class Hazelnut 0; Class Macadamia Nut 0; Class Peanut 0; Class Salmon 0; Class Scallop 0; Class Sesame Seed 0; Class Shrimp 0; Class Soybean 0; Class Tuna 0; Class Walnut 0; Class Wheat 0; F001-IgE Egg White <0.10 kU/L; F002-IgE Milk <0.10 kU/L; F003-IgE Codfish <0.10 kU/L; F004-IgE Wheat <0.10 kU/L; F010-IgE Sesame Seed <0.10 kU/L; F013-IgE Peanut <0.10 kU/L; F014-IgE Soybean <0.10 kU/L; F017-IgE Hazelnut (Filbert) <0.10 kU/L; F018-IgE Brazil Nut <0.10 kU/L; F020-IgE Almond <0.10 kU/L; F024-IgE Shrimp <0.10 kU/L; F040-IgE Tuna <0.10 kU/L; F041 IgE Salmon <0.10 kU/L; F202-IgE Cashew Nut <0.10 kU/L; F256-IgE Walnut <0.10 kU/L; F338-IgE Scallop <0.10 kU/L; F345-IgE Macadmia Nut <0.10 kU/L
== END 2024-06-19 14:43 | disposition home or self-care (01) ==
LOC: HO.CHCLDS 14:42
PROVIDERS: Visit Provider Internal Medicine
DX: R63.4 Abnormal weight loss (principal); Z91.018 Allergy to other foods
CPT/HCPCS: 36415; 84153; 86003

== ENCOUNTER 2024-11-23 12:30 | Outpatient (REF) | payer MEDICAID, SELFPAY ==
--- OUTSIDE RECORDS SUMMARY | 2024-11-23 13:42 | XMS_ITS | Encounter Summary ---
Author Organization [employer] Address [address] [facility] 7t [place] [address] Care Team Providers Care House Registry Rn Name Role Phone Jacek Bush MD Primary Care Provider [phone] Encounter Details Date Type Department Care Team ([facility] Contact Info) Description 09/10/2022 Telephone [facility]S [address] [place], [place] [phone] Jacek Bush MD [address] [place] [address] Social History Tobacco Use Types Packs/Day Years [...] Upcoming Encounters Date Type Department Care Team ([facility] Contact Info) Description 01/04/2025 11:00 AM EST Office Visit [facility]S [address] [place] [address] Jacek Bush MD [address] [place] [address] documented as of this encounter Visit Diagnoses Not on filedocumented in this encounter Additional Health Concerns Assessment Noted Time PHQ-9 Depression Total Score: 2 02/07/20 10:57 AM EST documented as of this encounter Care Teams House Registry Rn Relationship Specialty Start Date End Date Jacek Bush MD [address] [place] [address] PCP - General Internal Medicine 09/27/11 Kajal Pelayo Toll Ticket ClerkNational Sales Trainer 08/15/23 11/19/24 Imer Nichole Toll Ticket ClerkNational Sales Trainer 11/20/24 documented as of this encounter
--- OUTSIDE RECORDS SUMMARY | 2024-11-23 13:42 | XMS_ITS | Encounter Summary ---
Author Organization [employer] [facility] Address [address] [place] [address] [address], [place] [address] Care Team Providers Care Regional Refrigerated Cdl Truck Driver Name Role Phone Jacek Bush MD Primary Care Provider [phone] Encounter Details Date Type Department Care Team (Latest Contact Info) Description 03/23/2019 Abstract [facility] Dental, Provider, DDS Social History Tobacco [...] Upcoming Encounters Date Type Department Care Team ( st Contact Info) Description 01/04/2025 11:00 AM EST Office Visit [facility] MED [facility] PEDS [address] [place] [address] Jacek Bush MD [address] [place] [address] documented as of this encounter Visit Diagnoses Not on filedocumented in this encounter Care Teams Regional Refrigerated Cdl Truck Driver Relationship Specialty Start Date End Date Jacek Bush MD [address] [place] [address] PCP - General Internal Medicine 09/27/11 Kajal Pelayo Box BranderGuidance Consultant 08/15/23 11/19/24 Imer Nichole Box BranderGuidance Consultant 11/20/24 documented as of this encounter
--- OUTSIDE RECORDS SUMMARY | 2024-11-23 13:42 | XMS_ITS | Encounter Summary ---
Author Organization [employer] Address [address] [facility] [address] [place] [address] Care Team Providers Care Heating And Refrigeration Inspector Name Role Phone Jacek Bush MD Primary Care Provider [phone] Reason for Visit * Reason Onset Date Comments Care Coordination 11/20/2024 ICP Care Plan Encounter Details Date Type Department Care Team ([facility] st Contact Info) Description 11/20/2024 Telephone [facility] CH[facility] MED & PEDS [address] [place], [place] [phone] Jacek Bush MD [address] [place] [address] Care Coordination (ICP Care Plan) Social History Tobacco Use Types Packs/Day Years [...] encounter Miscellaneous Notes * Telephone Encounter - Lorie Amos - 11/20/2024 1:25 PM EDT PCP Designee has received and reviewed Care Plan from [facility]: Piece Goods Clerk: Imer Nichole Contact Information: [phone] Care Plan scanned into patient???s EHR and notification sent to PCP. documented in this encounter Plan of Treatment Upcoming Encounters Date Type Department Care Team ([facility] st Contact Info) Description 01/04/2025 11:00 AM EST Office Visit [facility] MED & PEDS [address] [place] [address] Jacek Bush MD [address] [place] [address] documented as of this encounter Visit Diagnoses Not on filedocumented in this encounter Additional Health Concerns Assessment Noted Time PHQ-9 Depression Total Score: 0 05/01/19 25 4:17 PM EST documented as of this encounter Care Teams Heating And Refrigeration Inspector Relationship Specialty Start Date End Date Jacek Bush MD [address] [place] [address] PCP - General Internal Medicine 09/27/11 Imer Nichole Locomotive FirerStained Glass Glazier 11/20/24 documented as of this encounter
--- OUTSIDE RECORDS SUMMARY | 2024-11-23 13:43 | XMS_ITS | Encounter Summary ---
Author Organization [employer] Address [address] [place] [address] 7 [place] [address] Care Team Providers Care Residential Property Consultant Name Role Phone Jacek Bush MD Primary Care Provider [phone] Encounter Details Date Type Department Care Team ([facility] Contact Info) Description 02/28/2023 Orders Only [facility] MED & PEDS [address] [place], [place] [phone] Jacek Bush MD [address] [place] [address] Multiple sclerosis (CMS/HCC) (Primary Dx) Social History [...] Upcoming Encounters Date Type Department Care Team ([facility] Contact Info) Description 01/04/2025 11:00 AM EST Office Visit [facility] MED & PEDS [address] [place], [place] [phone] Jacek Bush MD [address] [place] [address] documented as of this encounter Visit Diagnoses Diagnosis Multiple sclerosis- Primary documented in this encounter Additional Health Concerns Assessment Noted Time PHQ-9 Depression Total Score: 2 02/07/20 22 10:57 AM EST documented as of this encounter Care Teams Residential Property Consultant Relationship Specialty Start Date End Date Jacek Bush MD [address] [place] [address] PCP - General Internal Medicine 09/27/11 Kajal Pelayo Business Applications AnalystAudio Visual Facilities Engineer 08/15/23 11/19/24 Imer Nichole Business Applications AnalystAudio Visual Facilities Engineer 11/20/24 documented as of this encounter
--- OUTSIDE RECORDS SUMMARY | 2024-11-23 13:43 | XMS_ITS | Encounter Summary ---
Author Organization [employer] Address [address] [facility] 7 [place] [address] Care Team Providers Care Checker Dump Grounds Name Role Phone Jacek Bush MD Primary Care Provider [phone] Encounter Details Date Type Department Care Team ([facility] Contact Info) Description 01/02/2023 Orders Only [facility] MED & PEDS [address] [place] [address] Jacek Bush MD [address] [place] [address] Primary osteoarthritis of other site (Primary Dx); [...] Upcoming Encounters Date Type Department Care Team ([facility] Contact Info) Description 01/04/2025 11:00 AM EST Office Visit [facility] MED & PEDS [address] [place] [address] Jacek Bush MD [address] [place] [address] Scheduled Orders Name Type Priority Associated Diagnoses [...] documented as of this encounter Care Teams Checker Dump Grounds Relationship Specialty Start Date End Date Jacek Bush MD [address] [place] [address] PCP - General Internal Medicine 09/27/11 Kajal Pelayo Auto Service MechanicM1 Armor Crewman 08/15/23 11/19/24 Imer Nichole Auto Service MechanicM1 Armor Crewman 11/20/24 documented as of this encounter
--- OUTSIDE RECORDS SUMMARY | 2024-11-23 13:43 | XMS_ITS | Encounter Summary ---
Author Organization [employer] Address [address] [facility] [address], [place] [address] Care Team Providers Care Continuous Improvement Consultant Name Role Phone Jacek Bush MD Primary Care Provider [phone] Reason for Referral * Imaging (Routine) - Closed Specialty Diagnoses / Procedures Referred By Maurizio valles Referred To Contact Radiology Diagnoses Transaminitis Procedures US Abdomen Complete Jacek Bush MD [address] [place] [address] Phone: tel: fax: [facility] [address] [place], [place] Phone: tel: fax: Referral ID Status Reason Start Date Expiration Date Visits Re quested Visits Authorized [id number] Closed 12/23/2023 12/22/2024 1 1 Encounter Details Date Type Department Care Team ([facility] st Contact Info) Description 12/20/2023 Orders Only [facility] PEDS [address] [place] [address] Jacek Bush MD [address] [place] [address] Transaminitis (Primary Dx) Social History Tobacco Use [...] Upcoming Encounters Date Type Department Care Team ([facility] st Contact Info) Description 01/04/2025 11:00 AM EST Office Visit [facility] PEDS [address] [place] [address] Jacek Bush MD [address] [place] [address] documented as of this encounter Procedures Procedure [...] PM EST) Hepatitis A IgM Nonreactive Nonreactive [facility] Comment:IgM antibodies to HELLER V not detected; does not exclude earlyacute or recovered HAV infection. ~Hepatitis B Surface Antibody NONREACTIVE Nonreactive [facility] Comment:Nonreactive: < 8.00 mIU/mL Hepatitis B Core Antibody Nonreactive Nonreactive [facility] Hepatitis C Antibody Nonreactive Nonreactive [facility] Comment:Antibodies to HCV no t detected; does not exclude early acuteHCV infection. Hepatitis B Surface Ag Negative Negative [facility] Blood Venous blood specimen / Unknown 02/11/2024 4:24 PM EST 02/11/2024 5:44 PM EST us Jacek Bush MD LAB BLOOD ORDERABLES Final Result [facility] [address] [place] [phone] [phone] documented in this encounter Visit Diagnoses Diagnosis Transaminitis- Primary Nonspecific elevation of levels of transaminase or lactic acid dehydrogenase (LDH) documented in this encounter Additional Health Concerns Assessment Noted Time PHQ-9 Depression Total Score: 2 02/07/20 22 10:57 AM EST documented as of this encounter Care Teams Continuous Improvement Consultant Relationship Specialty Start Date End Date Jacek Bush MD [address] [place] [phone] PCP - General Internal Medicine 09/27/11 Kajal Pelayo Director Hospice OperationsMedical Physics Researcher 08/15/23 11/19/24 Imer Nichole Director Hospice OperationsMedical Physics Researcher 11/20/24 documented as of this encounter
--- OUTSIDE RECORDS SUMMARY | 2024-11-23 13:43 | XMS_ITS | Clinical Summary ---
Author Organization [employer] Address [address] [facility] 7[address] [place] [address] Care Team Providers Care Fabricator Special Items Name Role Phone Jacek Bush MD Primary Care Provider Allergies Active Allergy Reactions Criticality Noted Date Comments Onion Anaphylaxis High 06/19/2024 Medications Blood Pressure Monitoring (Omron 3 Series BP Monitor) device Check blood pressure on arm as directed ONCE OR twice DAILY 1 each 3 Active Diclofenac Sodium 1 % gelIndications:Chr onic left shoulder pain Apply 2 Application. topically in the morning and 2 Application. at noon. Apply (2G) by topical route 2 times a day every day to the affected area. 100 g 3 4 Active nystatin (Nystop) 208738 UNIT/GM powderIndications: Toe web intertrigo Apply topically 2 times daily. 15 g 4 12/19/19 25 Active EPINEPHrine (Epipen) 0.3 MG/0.3ML injection syringeIndications :Food allergy Inject 0.3 mL (0.3 mg) as directed 1 (one) time for 1 dose. use as directed for allergic reaction and then call 911 0.3 mL 5 Active diphenhydrAMINE (BENADryl) 25 MG tabletIndications: Food allergy Take 1 tablet (25 mg) by mouth every 8 (eight) hours if needed for itching. 30 tablet 5 Active LORazepam (Ativan) 0.5 MG tabletIndications: Anxiety TAKE ONE TABLET BY MOUTH EVERY DAY NEEDED FOR ANXIETY 30 tablet 5 Active ibuprofen 800 MG tabletIndications: Primary osteoarthritis of both knees Take 1 tablet (800 mg) by mouth if needed in the morning and at bedtime for mild pain. 60 tablet 1 5 12/29/19 25 Active Hospital, Clinic, or Other Facility Administered [...] Encounters Date Type Department Care Team Description 11/20/2024 Telephone [facility] [address] [place] [address] Jacek Bush MD Care Coordination (ICP Care Plan) 10/29/2024 1:45 PM EDT Office Visit [facility] [address] [place] [address] Jacek Bush MD Primary hypertension (Primary Dx); Multiple sclerosis (CMS/HCC); Hypercholesterolemia; Screening for colon cancer; Primary osteoarthritis of both knees 10/29/2024 Travel 10/28/2024 Telephone [facility] [address] [place] [address] Jacek Bush MD Chart Prep 10/21/2024 Patient Outreach [facility] [address] [place], [place] [phone] Jacek Bush MD Pre-visit Planning (Pre visit planning LVM ) 10/07/2024 Refill [facility] [address] [place] [address] Jacek Bush MD Anxiety from Last 3 Months Immunizations Immunization Administration Dates Next Due Pfizer Covid-19 Vaccine [...] Sign Reading Time Taken Comments Blood Pressure 130/83 10/29/2024 2:05 PM EDT Pulse 67 10/29/2024 2:05 PM EDT Temperature 36.8 C (98.2 F) 10/29/2024 2:05 PM EDT Respiratory Rate 20 10/29/2024 2:05 PM EDT Oxygen Saturation 97% 10/29/2024 2:05 PM EDT Inhaled Oxygen Concentration - - Weight 76.7 kg (169 lb) 10/29/2024 2:05 PM EDT Height 172.1 cm (5' 7.75 ) 10/29/2024 2:05 PM ED T Body Mass Index 25.89 10/29/2024 2:05 PM EDT Plan of Treatment Upcoming Encounters Date Type Department Care Team (Late st Contact Info) Description 01/04/2025 11:00 AM EST Office Visit [facility] [address] [place] [address] Jacek Bush MD [address] [place] [address] Health Maintenance Due Date Last Done Comments CT Colonography 1961 Colonoscopy 1961 Colorectal Cancer Screening 1961 FIT DNA/Cologuard 1961 FIT 1961 FOBT 1961 Sigmoidoscopy 1961 DTaP/Tdap/Td Vaccines (1 - Tdap) 1980 Zoster Vaccines (1 of 2) 2011 Alcohol/Substance Use Screening 04/30/2025 04/30/2024 Depression Screening 04/30/2025 04/30/2024, 04/30/2024 SDOH Screening 04/30/2025 04/30/2024 Influenza Vaccine (#1) 2025 Postp oned from 10/26/2024 (Patient Refused) COVID-19 Vaccine (2 - 2024-2 6 season) 2025 11/24/2020 Postponed from 10/26 (Patient Refused) Disability Screening 10/29/2025 10/29/2024 Pneumococcal Vaccine: 50+ Years (1 of 2 - PCV) 10/29/2025 Postponed from 02/25 (Patient Refused) Tobacco Screening 10/29/2025 10/29/2024 Lipid Panel 12/18/2028 12/19/2023, 05/26/2021 RSV Patients [...] patient's age to complete this topic Meningococcal B Vaccine Aged Out No l onger eligible based on patient's age to complete [...] Name Priority Date/Time Associated Diagnosis Comments HEPATITIS PANEL, GENERAL Routine 02/11/2024 4:24 PM EST Transaminitis LIPID PANEL, STANDARD Routine 12/19/2023 2:01 PM EDT Primary hypertension HIV 1/2 ANTIGEN/ANTIBODY, FOURTH GENERATION W/RFL Routine 12/15/2020 2:47 PM EDT from Last 3 Months or Most Recently Relevant to Health Maintenance Results * Hepatitis A,B,C Profile (02/11/2024 4:24 PM EST) Hepatitis A IgM Nonreactive Nonreactive [facility] Comment:IgM antibodies to HELLER V not detected; does not exclude earlyacute or recovered HAV infection. ~Hepatitis B Surface Antibody NONREACTIVE Nonreactive [facility] Comment:Nonreactive: < 8.00 mIU/mL Hepatitis B Core Antibody Nonreactive Nonreactive [facility] Hepatitis C Antibody Nonreactive Nonreactive [facility] Comment:Antibodies to HCV no t detected; does not exclude early acuteHCV infection. Hepatitis B Surface Ag Negative Negative [facility] Blood Venous blood specimen / Unknown 02/11/2024 4:24 PM EST 02/11/2024 5:44 PM EST us Jacek Bush MD LAB BLOOD ORDERABLES Final Result Performing Organization Address City/[facility]/ZIP Co de Phone Number [facility] [address] [place] [address] [phone] * (ABNORMAL) Lipid Panel, Standard (12/19/2023 2:01 PM EDT) Triglycerides 49 <150 mg/dL [facility] Comment:Desirable Triglyceri de: less than 150 mg/dLBorderline High Triglyceride 150-199 mg/dLHigh Triglyceride: 200-499 mg/dLVery High Triglyceride: greater than or equal to 5OO mg/dL Cholesterol 211(H) <200 mg/dL [facility] Comment:Desirable Cholestero l: less than 200 mg/dLBorderline High Cholesterol: 200-239 mg/dLHigh Cholesterol: greater than 239 mg/dL LDL Cholesterol Calculated 120(H) <100 mg/dL [facility] Comment:Desirable LDL: less than 100 mg/dLNear Optimal/Above Optimal LDL: 110- 129 mg/dLBorderline High LDL: 130-159 mg/dLHigh LDL: 160-189 mg/dLVery High LDL: greater than or equal to 190 mg/dL HDL Cholesterol 82 >40 mg/dL [facility] Comment:Desirable HDL: great er than 40 mg/dL Note: This HDL assay may give artificially low results in patients with liver disease. Blood Venous blood specimen / Unknown 12/19/2023 2:01 PM EDT 12/19/2023 5:37 PM EDT Jacek Bush MD LAB BLOOD ORDERABLES Final Result Performing Organization Address City/[facility]/ZIP Co de Phone Number [facility] [address] [place] [address] [phone] * HIV 1/2 ANTIGEN/ANTIBODY,FOURTH GENERATION W/RFL (12/15/2020 2:47 PM EDT) HIV-1/2 ANTIGEN AND ANTIBODIES, 4TH GENERATION W/ REFLEX NON-REACT DASHAWN NON-REACT DASHAWN [facility] Comment: HIV-1 antigen and HIV-1/HIV-2 antibodies were not detected. There is no laboratory evidence of HIV infection. PLEASE NOTE: This information has been disclosed to you from records whose confidentiality may be protected by state law. If your state requires such protection, then the state law prohibits you from making any further disclosure of the information without the specific written consent of the person to whom it pertains, or as otherwise permitted by law. A general authorization for the release of medical or other information is NOT sufficient for this purpose. For additional information please refer to http://education.[employer]/faq/AXY069 (This link is being provided for informational/ educational purposes only.) The performance of this assay has not been clinically validated in patients less than 2 years old. 12/15/2020 2:47 PM EDT us Michael Hou VP RHEUMATOLOGY LAB BLOOD ORDERABLES Final Result Performing Organization Address City/State/[facility] Phone Number [facility] [address]where [address] from Last 3 Months or Most Recently Relevant to Health Maintenance [place] [address] [place] [address] C3 Care Teams Fabricator Special Items Relationship Specialty Start Date End Date Jacek Bush MD [address] [place] [id number] PCP - General Internal Medicine 09/27/11 Imer Nichole Steel EngraverBroach Setter 11/20/24
--- OUTSIDE RECORDS SUMMARY | 2024-11-23 13:43 | XMS_ITS | Encounter Summary ---
Author Organization [employer] Address [address] [facility] 7 [place] [address] Care Team Providers Care Rail Car Repairer Name Role Phone Jacek Bush MD Primary Care Provider [phone] Reason for Visit * Reason Onset Date Comments requesting a call 07/31/2022 Encounter Details Date Type Department Care Team (Late st Contact Info) Description 07/31/2022 Telephone [facility] [address] [place] [address] Jacek Bush MD [address] [place] [address] requesting a call Social History Tobacco Use [...] Miscellaneous Notes * Telephone Encounter - Day Shubham - 07/31/2022 1:23 PM EDT Tc from pt requesting a call back in regards to 08/07/22 appointment for shoulder injection. Pt states he has a couple questions as well as wanting the injection on the knee instead of shoulder. Please contact pt at [phone] documented in this encounter Plan of Treatment Upcoming Encounters Date Type Department Care Team ([facility] st Contact Info) Description 01/04/2025 11:00 AM EST Office Visit [facility] [address] [place] [address] Jacek Bush MD [address] [place] [address] documented as of this encounter Visit Diagnoses Not on filedocumented in this encounter Additional Health Concerns Assessment Noted Time PHQ-9 Depression Total Score: 2 02/07/20 22 10:57 AM EST documented as of this encounter Care Teams Rail Car Repairer Relationship Specialty Start Date End Date Jacek Bush MD [address] [place] [address] PCP - General Internal Medicine 09/27/11 Kajal Pelayo Tree TopperAddictions Recovery Specialist 08/15/23 11/19/24 Imer Nichole Tree TopperAddictions Recovery Specialist 11/20/24 documented as of this encounter
--- OUTSIDE RECORDS SUMMARY | 2024-11-23 13:43 | XMS_ITS | Encounter Summary ---
Author Organization [employer] Address [address] [facility] 7 [place] [address] Care Team Providers Care Manager Project Management Name Role Phone Jacek Bush MD Primary Care Provider [phone] Reason for Visit * Reason Onset Date Comments Appointment Request 10/14/2023 Encounter Details Date Type Department Care Team (Late st Contact Info) Description 10/14/2023 Telephone [facility] [address] [place] [address] Jacek Bush MD [address] [place] [address] Appointment Request Social History Tobacco Use Types [...] Date Type Department Care Team ([facility] st Contact Info) Description 01/04/2025 11:00 AM EST Office Visit [facility] [address] [place] [address] Jacek Bush MD [address] [place], [place] [phone] documented as of this encounter Visit Diagnoses Not on filedocumented in this encounter Additional Health Concerns Assessment Noted Time PHQ-9 Depression Total Score: 2 02/07/20 22 10:57 AM EST documented as of this encounter Care Teams Manager Project Management Relationship Specialty Start Date End Date Jacek Bush MD [address] [place] [id number] PCP - General Internal Medicine 09/27/11 Kajal Pelayo [employer] Can WorkerSafety Fire Boss 08/15/23 11/19/24 Imer Nichole [employer] WorkerSafety Fire Boss 11/20/24 documented as of this encounter
--- OUTSIDE RECORDS SUMMARY | 2024-11-23 13:43 | XMS_ITS | Encounter Summary ---
Author Organization [employer] Address [address] [facility] [address] [address] Care Team Providers Care Medical Technologist Prn Name Role Phone Jacek Bush MD Primary Care Provider [phone] Reason for Referral * Imaging (Routine) - Closed Specialty Diagnoses / Procedures Referred By Maurizio valles Referred To Contact Diagnoses Lightheadedness Procedures MR Cervical Spine w/ and w/o Contrast Jacek Bush MD [address] [place] [phone] Phone: tel: fax: [facility] [address] [place], [place] Phone: tel: fax: Referral ID Status Reason Start Date Expiration Date Visits Re quested Visits Authorized [id number] Closed 07/25/2022 07/25/2023 1 1 Encounter Details Date Type Department Care Team (Late st Contact Info) Description 07/25/2022 Orders Only [facility] & PEDS [address] [place] [address] Jacek Bush MD [address] [place] [address] Lightheadedness (Primary Dx) Social History Tobacco Use [...] Description 01/04/2025 11:00 AM EST Office Visit [facility] PEDS [address] [place] [address] Jacek Bush MD [address] [place] [address] Scheduled Orders Name Type Priority Associated Diagnoses [...] PM EDT) T Spot TB Negative Negative [facility] Comment:A negative test resu lt does [...] as aquantitative test. TS PANEL A 2 [facility] TS PANEL B 0 [facility] Negative Control Passed [facility] Positive Control Passed [facility] Comment:For additional infor anay, please refer tohttp://education.[employer]/faq/CYE121(This link is being provided for informational/educational purposes only.)THIS TEST WAS PERFORMED AT:[employer] [id number] [place] [address]CPDSZLVALLISON HERNANDEZ MD,PHD 10/31/2022 1:20 PM EDT 10/31/2022 3:54 PM EDT [facility] External Provider LAB BLO OD ORDERABLES Final Result Performing Organization Address City/[facility]/ZIP Co de Phone Number [facility] [address] [place] [phone] * Hepatitis B Profile (10/31/2022 1:20 PM EDT) ~Hepatitis B Surface Antibody NONREACTIVE Nonreactive [facility] Comment:Nonreactive: < 8.00 mIU/mL Hepatitis B Core Antibody Nonreactive Nonreactive [facility] Hepatitis B Surface Ag Negative Negative [facility] 10/31/2022 1:20 PM EDT 10/31/2022 3:54 PM EDT [facility] External Provider LAB BLO OD ORDERABLES Final Result Performing Organization Address City/[facility]/ZIP Co de Phone Number [facility] [address] [place] [phone] * Creatinine, Serum (08/31/2022 9:36 AM EDT) Creatinine, Serum 1.28 0.5 - 1.4 mg/dL [facility] Creatinine Clr Calc Pharmacy TNP [facility] Comment:Unable to calculate eCrCL; all parameters not provided. Estimated Glomerular Filt Rate 57 [facility] Comment:NOTE: For -Am erican individuals, multiply the result by 1.210.Chronic Kidney Disease: Estimated GFR < 60 mL/min/1.42w0Juojmt Kidney Disease: Estimated GFR < 15 mL/min/1.73m2 08/31/2022 9:36 AM EDT 08/31/2022 9:38 AM EDT [facility] External Provider LAB BLO OD ORDERABLES Final Result Performing Organization Address [facility] Co de Phone Number [facility] [address] [place] [phone] * (ABNORMAL) BUN (Blood Urea Nitrogen) (08/31/2022 9:36 AM EDT) Urea Nitrogen (BUN) 7(L) 9 - 16 mg/dL [facility] 08/31/2022 9:36 AM EDT 08/31/2022 9:38 AM EDT [facility] External Provider LAB BLO OD ORDERABLES Final Result Performing Organization Address [facility] de Phone Number [facility] [address] [place] [phone] * Electrolyte Panel (08/31/2022 9:36 AM EDT) Sodium 140 135 - 145 mmol/L [facility] Potassium 4.2 3.3 - 5.1 mmol/L [facility] Chloride 103 96 - 108 mmol/L [facility] Carbon Dioxide 27 22 - 29 mmol/L [facility] Anion Gap 14 12 - 20 [facility] 08/31/2022 9:36 AM EDT 08/31/2022 9:38 AM EDT [facility] External Provider LAB BLO OD ORDERABLES Final Result Performing Organization Address [facility]/ZIP Co de Phone Number [facility] [address] [place] [phone] * Partial Thromboplastin Time, Activated (APTT) (08/31/2022 9:36 AM EDT) Partial Thromboplastin Time 35.2 26.0 - 36.4 SEC [facility] 08/31/2022 9:36 AM EDT 08/31/2022 9:38 AM EDT [facility] External Provider LAB BLO OD ORDERABLES Final Result Performing Organization Address City/[facility] Co de Phone Number [facility] [address] [place] [phone] * Prothrombin Time-INR (08/31/2022 9:36 AM EDT) [facility] Prothrombin Time 11.6 10.0 - 13.1 SEC [facility] INTERNATIONAL NORM RATIO 1.0 0.9 - 1.1 [facility] Comment:INTERNATIONAL NORMAL IZED RATIO (INR) REFERENCE [...] 9:36 AM EDT 08/31/2022 9:38 AM EDT [facility] External Provider LAB BLO OD ORDERABLES Final Result Performing Organization Address City/[facility] Co de Phone Number [facility] [address] [place] [phone] * (ABNORMAL) CBC auto differential (08/31/2022 9:36 AM EDT) White Blood Count 5.4 4.8 - 10.8 X10*3/uL [facility] Red Blood Count 5.09 4.60 - 5.80 X10*6/uL [facility] Hemoglobin 14.7 14.0 - 18.0 g/dl [facility] Hematocrit 43.8 42.0 - 52.0 % [facility] Mean Corpuscular Volume 86.1 80.0 - 98.0 fL [facility] Mean Corpuscular Hemoglobin 28.9 27.0 - 33.0 pg [facility] Mean Corpuscular HGB Conc 33.6 31.0 - 36.0 g/dl [facility] Red Cell Distribution Width 12.8 11.0 - 16.0 % [facility] Platelet Count 182 160 - 400 X10*3/uL [facility] Mean Platelet Volume 10.7 9.4 - 12.4 fL [facility] Neutrophils Percent Auto 35.8(L) 45 - 73 % [facility] Imm Gran Pct Auto 0.0 0.0 - 0.4 % [facility] Lymphocytes Percent Auto 52.4(H) 20 - 40 % [facility] Monocytes Percent Auto 7.2 2 - 11 % [facility] Eosinophils Percent Auto 3.9 0 - 4 % [facility] Basophils Percent Auto 0.7 0 - 2 % [facility] NRBC Pct Auto 0.0 0.0 - 0.2 /100WBC [facility] Neutrophils Absolute Auto 1.9(L) 2.0 - 8.3 x10*3/uL [facility] Imm Gran Abs Auto 0.00 0.00 - 0.03 X10*3/uL [facility] Lymphocytes Absolute Auto 2.8 1.2 - 4.9 X10*3/uL [facility] Monocytes Absolute Auto 0.4 0.1 - 1.2 X10*3/uL [facility] Eosinophils Absolute Auto 0.2 0.0 - 0.4 X10*3/uL [facility] Basophils Absolute Auto 0.0 0.0 - 0.2 X10*3/uL [facility] NRBC Abs Auto 0.000 0.0 - 0.012 X10*3/uL [facility] 08/31/2022 9:36 AM EDT 08/31/2022 9:38 AM EDT [facility] External Provider LAB BLO OD ORDERABLES Final Result Performing Organization Address [facility] Phone Number [facility] [address] [place] [phone] * Oligoclonal banding (08/31/2022 12:00 AM EDT) Oligoclonal Bands (IgG), CSF [facility] 08/31/2022 08/31/2022 1:3 9 PM EDT [facility] External Provider LAB BLO OD ORDERABLES Final Result Performing Organization Address [facility] [address] [place] [phone] * IgG Synthesis Rate/Index, CSF (08/31/2022 12:00 AM EDT) Albumin [facility] Comment:QNS. TWO TUBES RECEI VANESSA WITH TOTAL OF 1.5cc LEAT Immunoglobulin G [facility] IgG, CSF [facility] Albumin, CSF [facility] IgG Index, CSF [facility] Synthesis Rate IgG, CSF [facility] 08/31/2022 08/31/2022 1:3 9 PM EDT [facility] Exter nal Provider LAB BODY FLUIDS AND STOOLS ORDERABLES Final Result Performing Organization Address [facility] Phone Number [facility] [address] [place] [phone] * Gram stain (08/31/2022 12:00 AM EDT) 08/31/2022 08/31/2022 1:3 9 PM EDT Comment:CSF Narrative [facility] - 09/03/2022 9:13 AM EDT TUBE #2 Gram stain results: No polys 4+ red blood cells No organisms seen TUBE #2 CSF Volume CSF volume mL CSF Volume 1.0 TUBE #2 Appearance Appearance Appearance Bloody TUBE #2 CSF Culture No growth after 3 days. Specimen Source: Cerebrospinal Fluid [facility] LAB MICROBIOLOGY - GENERAL ORDERABLES Final Result Performing Organization Address [facility] de Phone Number [facility] [address] [place] [phone] * CSF cell count with differential (08/31/2022 12:00 AM EDT) Appearance CSF BLOODY [facility] CSF Tube Number 1 [facility] CSF Volume 0.5 ML [facility] CSF Color RED [facility] CSF White Blood Cell 6 MM*3 [facility] Comment:Body Fluid WBC is a total nucleated cell count.When a differential is performed, the specimen isconcentrated by cytocentrifugation. This sometimes resultsin the number of cells in the differential being greaterthan the actual cell count performed on thenon-concentrated specimen. CSF Red Blood Cell 76,750 MM*3 [facility] NEUTROPHILS %, CSF 45 % [facility] LYMPHOCYTES %, CSF 50 % [facility] Monocytes CSF 5 % [facility] 08/31/2022 08/31/2022 1:3 9 PM EDT [facility] Provider LAB BODY FLUIDS AND STOOLS ORDERABLES Final Result Performing Organization Address [facility] de Phone Number [facility] [address] [place] [phone] * (ABNORMAL) Total Protein CSF (08/31/2022 12:00 AM EDT) Total Protein CSF 179.9(H) 15 - 45 mg/dL [facility] 08/31/2022 08/31/2022 1:3 9 PM EDT [facility] Exter nal Provider LAB BODY FLUIDS AND STOOLS ORDERABLES Final Result Performing Organization Address [facility] de Phone Number [facility] [address] [place] [phone] * Glucose, CSF (08/31/2022 12:00 AM EDT) CSF Appearance Bloody [facility] CSF Tube Number 2 [facility] Glucose CSF 66 mg/dL [facility] 08/31/2022 08/31/2022 1:3 9 PM EDT [facility] Exter nal Provider LAB BODY FLUIDS AND STOOLS ORDERABLES Final Result Performing Organization Address [facility] de Phone Number [facility] [address] [place] [phone] documented in this encounter Visit Diagnoses Diagnosis Lightheadedness- Primary Dizziness and giddiness documented in this encounter Additional Health Concerns Assessment Noted Time PHQ-9 Depression Total Score: 2 02/07/20 22 10:57 AM EST documented as of this encounter Care Teams Medical Technologist Prn Relationship Specialty Start Date End Date Jacek Bush MD [address] [place] [phone] PCP - General Internal Medicine 09/27/11 Kajal Pelayo Director Of EnrollmentGrain Cleaner And Transfer Operator 08/15/23 11/19/24 Imer Nichole Director Of EnrollmentGrain Cleaner And Transfer Operator 11/20/24 documented as of this encounter
--- OUTSIDE RECORDS SUMMARY | 2024-11-23 13:43 | XMS_ITS | Encounter Summary ---
Author Organization [employer] Address [address] [facility] [address] [place] [address] Care Team Providers Care Film Crew Member Name Role Phone Jacek Bush MD Primary Care Provider [phone] Encounter Details Date Type Department Care Team (Late st Contact Info) Description 08/02/2023 Orders Only [facility]EDS [address] [place], [place] [phone] ProviderTyler MD Social History Tobacco Use Types [...] Description 01/04/2025 11:00 AM EST Office Visit [facility] [address] [place] [address] Jacek Bush MD [address] [place] [address] documented as of this encounter Procedures Procedure [...] documented as of this encounter Care Teams Film Crew Member Relationship Specialty Start Date End Date Jacek Bush MD [address] [place] [address] PCP - General Internal Medicine 09/27/11 Kajal Pelayo General Manager Land DepartmentImmigration Law Specialist 08/15/23 11/19/24 Imer Nichole General Manager Land DepartmentImmigration Law Specialist 11/20/24 documented as of this encounter
--- OUTSIDE RECORDS SUMMARY | 2024-11-23 13:43 | XMS_ITS | Encounter Summary ---
Author Organization [employer] Address [address] [place] [address] Care Team Providers Care Molder Vacuum Name Role Phone Jacek Bush MD Primary Care Provider [phone] Reason for Visit * Reason Onset Date Comments Appointment Request 08/14/2022 Encounter Details Date Type Department Care Team ([facility] st Contact Info) Description 08/14/[address] [facility] MED & PEDS [address] [place], [place] [phone] Jacek Bush MD [address] [place] [address] Appointment Request Social History Tobacco Use Types [...] Miscellaneous Notes * Telephone Encounter - Viky Milian - 08/14/2022 8:55 AM EDT Tc from patient requesting to r/s procedure appt from 6/13/23. Details: shoulder injection documented in this encounter Plan of Treatment Upcoming Encounters Date Type Department Care Team (Late st Contact Info) Description 01/04/2025 11:00 AM EST Office Visit [facility]ED[facility] [address] [place] [address] Jacek Bush MD [address] [place] [address] documented as of this encounter Visit Diagnoses Not on filedocumented in this encounter Additional Health Concerns Assessment Noted Time PHQ-9 Depression Total Score: 2 02/07/20 10:57 AM EST documented as of this encounter Care Teams Molder Vacuum Relationship Specialty Start Date End Date Jacek Bush MD [address] [place] [address] PCP - General Internal Medicine 09/27/11 Kajal Pelayo Yam CurerRiver Guide 08/15/23 11/19/24 Imer Nichole Yam CurerRiver Guide 11/20/24 documented as of this encounter
[2024-11-23 14:10] LABS: MANUAL DIFF FLAG NO
[2024-11-23 14:19] LABS: Hematocrit 36.2 % (42.0-52.0); Hemoglobin 12.4 g/dl (14.0-18.0); Imm Gran Abs Auto 0.00 X10*3/uL (0.00-0.03); Imm Gran Pct Auto 0.0 % (0.0-0.4); Lymphocytes Absolute Auto 2.4 X10*3/uL (1.2-4.9); Mean Corpuscular HGB Conc 34.3 g/dl (31.0-36.0); Mean Corpuscular Hemoglobin 29.2 pg (27.0-33.0); Mean Corpuscular Volume 85.4 fL (80.0-98.0); NRBC Abs Auto 0.000 X10*3/uL (0.0-0.012); NRBC Pct Auto 0.0 /100WBC (0.0-0.2); Platelet Count 142 X10*3/uL (160-400); Red Blood Count 4.24 X10*6/uL (4.60-5.80); White Blood Count 4.3 X10*3/uL (4.8-10.8)
[2024-11-23 14:44] LABS: Alanine Aminotransferase 40 U/L (0-40); Albumin Level 4.2 g/dL (3.5-5.0); Alkaline Phosphatase 71 U/L (39-117); Anion Gap 11 (12-20); Aspartate Amino Transferase 40 U/L (5-37); Blood Urea Nitrogen 16 mg/dL (9-16); Calcium 9.3 mg/dL (8.4-10.2); Carbon Dioxide 27 mmol/L (22-29); Chloride 109 mmol/L (96-108); Cholesterol 213 mg/dL (<200); Estimated Glomerular Filt Rate > 60; HDL Cholesterol 78 mg/dL (>40); Potassium 4.3 mmol/L (3.3-5.1); Sodium 143 mmol/L (135-145); Total Protein 6.8 g/dL (6.5-8.0); Triglycerides 54 mg/dL (<150)
== END 2024-11-23 12:31 | disposition home or self-care (01) ==
LOC: HO.CHCLDS 12:30
PROVIDERS: Visit Provider Internal Medicine
DX: I10 Essential (primary) hypertension (principal)
CPT/HCPCS: 36415; 80053; 80061; 84443; 85025